=== PATIENT | female | born 1970 | race Caucasian/White ===

== ENCOUNTER 2019-06-13 10:38 | Outpatient (REF) | payer OTHER, SELFPAY ==
[2019-06-13 22:17] LABS: Calculated LDL 108 mg/dL; Cholesterol 206 mg/dL (50-200); HDL Cholesterol 49 mg/dL (40-60); TSH (W/Ref FT4) 1.92 uIU/mL (0.36-3.74); Triglyceride 245 mg/dL (30-150)
[2019-06-13 22:55] LABS: HCT 44.6 % (36.0-46.0); HGB 15.3 g/dL (12.0-15.5)
[2019-06-15 10:15] LABS: FSH 15.8 mIU/ml; LH 7.9 mIU/ml
== END 2019-06-13 10:58 ==
LOC: NCHCN 10:38
PROVIDERS: PCP Family Medicine; Visit Provider Family Medicine
DX: Z00.00 Encounter for general adult medical examination without abnormal findings (principal); R53.83 Other fatigue; N95.1 Menopausal and female climacteric states; F17.210 Nicotine dependence, cigarettes, uncomplicated; F32.9 Major depressive disorder, single episode, unspecified
CPT/HCPCS: 80061; 83001; 83002; 84443; 85014; 85018

== ENCOUNTER 2019-08-16 02:03 | Outpatient (CLI) | payer OTHER, SELFPAY ==
--- NOTE | 2019-08-16 16:06 | DI.MAMMO_ITS ---
EXAM: MAMMO SCREENING CLINICAL HISTORY: SCREENING, [facility] Z00.00 TECHNIQUE: Mammograms were interpreted according to the usual protocol including computer analysis w Petrab[employer] system, tomosynthesis and C-view imaging. FINDINGS: The breasts are heterogeneously dense. No dominant mass or clumped microcalcification identified in either breast. Current examination is compared with previous examinations including April 2017 and ere has been no gross interval change in appearance in comparison with the previous studies. IMPRESSION: No specific evidence of malignancy at this time. Routine screening examinations are suggested at year ly intervals in this age group according to the ACS ACR guidelines. Category 1. Breast category, C. BI-RADS Cat 1 - Negative. Breast Density - Category C - Heterogeneously dense. Patient will receive a letter about results.
== END 2019-08-16 02:23 ==
PROVIDERS: PCP Family Medicine; Visit Provider Family Medicine
DX: Z00.00 Encounter for general adult medical examination without abnormal findings (principal); Z12.31 Encounter for screening mammogram for malignant neoplasm of breast
CPT/HCPCS: 77063; 77067

== ENCOUNTER 2020-06-20 19:44 | Outpatient (REF) | payer OTHER, SELFPAY ==
[2020-06-20 20:29] LABS: TSH 2.11 uIU/mL (0.36-3.74); Triglyceride 294 mg/dL (<150)
[2020-06-20 20:55] LABS: FREE T4 1.02 ng/dL (0.76-1.46)
[2020-06-24 15:10] LABS: FSH 6.3 mIU/mL (See Note); LH 2.3 mIU/mL (See Note)
== END 2020-06-20 20:04 ==
LOC: NCHCN 19:44
PROVIDERS: PCP Family Medicine; Visit Provider Family Medicine
DX: Z00.00 Encounter for general adult medical examination without abnormal findings (principal); R53.83 Other fatigue; F32.9 Major depressive disorder, single episode, unspecified
CPT/HCPCS: 83001; 83002; 84439; 84443; 84478

== ENCOUNTER 2021-06-24 16:46 | Outpatient (REF) | payer OTHER, SELFPAY ==
--- NOTE | 2021-06-24 14:00 | PAPFT_PTH ---
PATIENT: Yaritza Orourke LOC: [facility]#:[id number] AGE/SX: 50/F ROOM: RE06/24/[address]: Makenzie Pete V : 1970 BED: DIS: 06/24/2021 SPEC #: [id number] RECD: 06/25/21 12:54 STATUS: RHONDA REQ #: [id number] WEI: 06/24/21 14:[address]: Makenzie Pete V DEPT: [facility] Cytology RECD BY: Karmen Gleason Tissues: 1 - CX/ENDOCX FOR PAP SMEARS Procedures: PAP THIN PREP/UVM Screening HPV DNA PROBE Comments: [id number]
== END 2021-06-24 16:47 | disposition home or self-care (01) ==
LOC: NCHCN 16:46
PROVIDERS: PCP Family Medicine; Visit Provider Family Medicine
DX: Z01.419 Encounter for gynecological examination (general) (routine) without abnormal findings (principal); Z12.4 Encounter for screening for malignant neoplasm of cervix; Z11.51 Encounter for screening for human papillomavirus (HPV); Z87.42 Personal history of other diseases of the female genital tract
CPT/HCPCS: 88142; 87624

== ENCOUNTER 2021-07-23 02:21 | Outpatient (CLI) | payer OTHER, SELFPAY ==
--- NOTE | 2021-07-23 | DI.CTLCSR_ITS ---
Exam(s) CT CHEST LUNG CANCER SCREEN EXAM: CT CHEST LUNG CANCER SCREEN CLINICAL HISTORY: SCREENING FOR LUNG CA, SMOKER, F17.210,PREVENT[facility]IVE HEALTH TECHNIQUE: CT examination of the chest was performed utilizing low-dose lung cancer screening protoc ol. COMPARISON: No exams were available for comparison FINDINGS: Images obtained through the upper abdomen show unremarkable appearance of visualized portions of the liver and spleen. Note is made of prior cholecystectomy. Visualized portions of pancreas, adrenals , and kidneys appear unremarkable. Note is made of mild enlargement of multiple paratracheal and aortopulmonary lymph nodes, largest in the AP window on transaxial images measuring 24 millimeters in diameter with a 23 millimeter right pr etracheal node period the findings are nonspecific, possibility of underlying neoplastic disease not excluded. Mediastinal vascular structures appear intact by noncontrast criteria. Tracheobronchial tree appears intact. No pleural effusion or pleural-based mass. No significant intrapulmonary nodule is identified. There is a tiny calcified right lower lobe intra pulmonary nodule. There are moderate changes of central lobular and subpleural emphysema. IMPRESSION: Pulmonary emphysematous changes and nonspecific mild mediastinal lymphadenopathy. Clinical correlati on requested and follow-up chest CT is recommended to re-evaluate mediastinal adenopathy in 6 months if tissue sampling is not obtained. Lung RADS Cat 1 - Negative: No nodules and definitely benign nodules Lung RADS Cat S - Other: Clinically Significant or Potentially Clinically Significant Findings (non l juarez cancer) RADIATION DOSE DELIVERED: 79.98mGy.cm Total DLP 1.84mGy CTDIvol 79.98mGy.cm Total DLP 1.84mGy CTDIvol RADIATION OPTIMIZATION: All CT scans at this facility use at least one of these dose optimization te chniques: automated exposure control; mA and/or kV adjustment per patient size (includes targeted exa ms where dose is matched to clinical indication); or iterative reconstruction.
--- NOTE | 2021-07-23 16:10 | DI.MAMMO_ITS ---
Exam(s) MAMMO SCREENING EXAM: MAMMO SCREENING CLINICAL HISTORY: SCREENING, [facility],Z00.00. TECHNIQUE: Bilateral full field digital CC and MLO mammographic images were obtained with 3D tomosyn thesis and utilizing computer aided detection (CAD). COMPARISON: Prior mammograms dating back to 2016, the most recent being August 2019. FINDINGS: Fibroglandular tissue pattern is again noted be dense, this decreasing the sensitivity mammogram for finding hidden underlying lesions. Some asymmetric tissue anteromedially in the left breast is unchanged from prior studies. There are no new obvious spiculated masses nor malignant appearing microcalcification groups. There is no significant architectural distortion nor skin thickening-retraction. IMPRESSION: Dense bilateral fibroglandular tissue. No obvious radiographic evidence of malignancy nor significan t change compared to prior studies listed above. BI-RADS Category 1 - Negative Breast Density - Category C - Heterogeneously dense Breast density Category C or D implies that the patient has dense breast tissue. Dense breast tissue can make it harder to find cancer on a mammogram. Dense breast tissue is also associated with an incr eased risk of breast cancer. This information about the result of the mammogram report was provided to the patient to raise their awareness. Use this report when you speak with the patient about their risks for breast cancer, which includes their family history. At that time, you may recommend additional screening tests (Ultrasoun d or MRI) as these tests may add significant information. A negative radiographic report should not delay biopsy if a dominant or clinically suspicious mass is present. Up to ten percent of cancers are not identified on mammography. A negative report may reinforce clinical impression. Adenosis and dense breasts may obscure an underlying neoplasm. False positive reports average 6 to 10%. Patient will receive a letter notifying them of these results.
== END 2021-07-23 02:41 ==
PROVIDERS: PCP Family Medicine; Visit Provider Family Medicine
DX: Z12.31 Encounter for screening mammogram for malignant neoplasm of breast (principal); Z12.2 Encounter for screening for malignant neoplasm of respiratory organs; F17.210 Nicotine dependence, cigarettes, uncomplicated; R92.8 Other abnormal and inconclusive findings on diagnostic imaging of breast; R59.0 Localized enlarged lymph nodes; R91.8 Other nonspecific abnormal finding of lung field
CPT/HCPCS: 71271; 77063; 77067

== ENCOUNTER 2021-08-08 01:07 | Outpatient (CLI) | payer OTHER, SELFPAY ==
[2021-08-08] MEDS: Inhaler, Assist Device 1 EACH MC (16:12)
[2021-08-08] MEDS: Albuterol HFA 18 GM 200 PUFF INH IH (16:12)
--- NOTE | 2021-08-22 10:51 | W.PFT ---
Date of service: 08/08/21 Time of Service: 14:49 Pulmonary Function Test Result Requesting Provider Rachel Indications: ?Sarcoidosis Interpretation Spirometry: There is no airflow limitation. There is no significant response to bronchodilator therapy. Lung Volumes: Lung volumes are normal. Diffusion Capacity: Diffusion is normal. Airway Pressure: Airways resistance is normal. Impression Normal pulmonary function test Clinical Correlation therefore is recommended.
== END 2021-08-08 01:08 | disposition home or self-care (01) ==
LOC: RT 01:07
PROVIDERS: PCP Family Medicine; Visit Provider Student in an Organized Health Care Education/Training Program
DX: R59.0 Localized enlarged lymph nodes (principal); F17.210 Nicotine dependence, cigarettes, uncomplicated; Z77.098 Contact with and (suspected) exposure to other hazardous, chiefly nonmedicinal, chemicals
CPT/HCPCS: 94060; 94726; 94729

== ENCOUNTER 2022-10-21 03:17 | Outpatient (CLI) | payer OTHER, SELFPAY ==
[2022-10-21 07:48] LABS: ESR 1 mm/hr (0-30); HCT 46.4 % (36.0-46.0); HGB 15.9 g/dL (11.2-15.7); MCH 32.5 pg (27.0-33.0); MCHC 34.3 % (32.0-36.0); MCV 95 fL (80-95); Platelet Count 259 10^3/uL (130-400); RBC 4.89 10^6/uL (3.93-5.22); RDW 12.6 % (11.7-14.6); RDW-SD 44.4 fL; WBC 7.07 10^3/uL (4.4-10.8)
[2022-10-21 09:14] LABS: ALT 79 U/L (14-59); AST 60 U/L (15-37); Alkaline Phosphatase 81 U/L (46-116); Anion Gap 6.2 mmol/L (3-11); BUN 8 mg/dL (7-18); Bilirubin, Total 0.7 mg/dL (0.2-1.0); CO2 29.8 mmol/L (21.0-32.0); CREATININE 0.7 mg/dL (0.55-1.02); Calcium 8.8 mg/dL (8.5-10.1); Chloride 103 mmol/L (98-107); FREE T4 0.94 ng/dL (0.76-1.46); Glucose 105 mg/dL (74-106); Potassium 3.6 mmol/L (3.5-5.1); Sodium 139 mmol/L (136-145); TSH 2.75 uIU/mL (0.36-3.74); Total Protein 7.9 g/dL (6.4-8.2)
[2022-10-21 09:16] LABS: C-Reactive Protein < 0.05 mg/dL (0.0-0.3)
[2022-10-21 09:32] LABS: Calculated LDL 86 mg/dL (<100); Cholesterol 182 mg/dL (<200); HDL Cholesterol 67 mg/dL (40-60); Triglyceride 145 mg/dL (<150)
== END 2022-10-21 03:18 | disposition home or self-care (01) ==
PROVIDERS: PCP Family Medicine; Visit Provider Family Medicine
DX: D86.9 Sarcoidosis, unspecified (principal); R53.83 Other fatigue; Z00.00 Encounter for general adult medical examination without abnormal findings
CPT/HCPCS: 36415; 80053; 80061; 85027; 85652; 84439; 84443; 86140

== ENCOUNTER 2022-11-12 04:31 | Outpatient (CLI) | payer OTHER, SELFPAY ==
[2022-11-12] MEDS: Albuterol HFA 18 GM 200 PUFF INH IH (09:40)
[2022-11-12] MEDS: Inhaler, Assist Device 1 EACH MC (09:40)
--- NOTE | 2022-11-17 13:58 | W.PFT ---
Date of service: 11/12/22 Time of Service: 08:00 Pulmonary Function Test Result Requesting Provider Marimar Indications: Sarcoidosis Interpretation Spirometry: There is no airflow limitation. There is no significant bronchodilator response. Lung Volumes: Normal lung volumes. Diffusion Capacity: Mildly decreased diffusion. Airway Pressure: Normal airways resistance. Impression Mildly decreased diffusion. Note: When compared to 08/08/21, the FEV1 and FVC are stable, the TLC is improved and DLCO is stable. Clinical Correlation therefore is recommended.
== END 2022-11-12 04:32 | disposition home or self-care (01) ==
LOC: RT 04:31
PROVIDERS: PCP Family Medicine; Visit Provider Physician Assistant Surgical
DX: D86.9 Sarcoidosis, unspecified (principal); F17.210 Nicotine dependence, cigarettes, uncomplicated; R94.2 Abnormal results of pulmonary function studies
CPT/HCPCS: 94060; 94726; 94729

== ENCOUNTER 2022-11-12 09:36 | Outpatient (CLI) | payer OTHER, SELFPAY ==
--- NOTE | 2022-11-12 09:45 | RT.EKG_ITS ---
APPROVED REPORT Exam: Resting ECG Reason for Exam: screening for cardiac sarcoid Patient Location: O HR:70 bpm ECG Measurements Heart Rate 70 AXIS IL 133 P 83 QRSd 101 QRS 72 QT 373 T 44 QTc 403 Conclusion Sinus rhythm...normal P axis, V-rate 50- 99 Normal Electrocardiogram
== END 2022-11-12 09:37 | disposition home or self-care (01) ==
LOC: CARDOPNVT 09:36
PROVIDERS: PCP Family Medicine; Visit Provider Physician Assistant Surgical
DX: D86.9 Sarcoidosis, unspecified (principal); Z13.6 Encounter for screening for cardiovascular disorders
CPT/HCPCS: 93005; 93010

== ENCOUNTER 2022-12-30 01:19 | Outpatient (CLI) | payer OTHER, SELFPAY ==
--- NOTE | 2022-12-30 08:00 | DI.MAMMO_ITS ---
Exam(s) MAMMO SCREENING EXAM: MAMMO SCREENING CLINICAL HISTORY: SCREENING, Z12.31 TECHNIQUE: Bilateral full field digital CC and MLO mammographic images were obtained with 3D tomosyn thesis and utilizing computer aided detection (CAD). COMPARISON: Available for comparison. FINDINGS: Masses/Architectural Distortion: None seen. Microcalcifications: No suspicious pleomorphic-type are seen. Skin Thickening/Nipple Retraction: None. IMPRESSION: 1. No significant interval change with no specific features of malignancy noted. 2. Unless there is more urgent need, screening mammography is recommended, as per [place] [employer] guidelines. BI-RADS Category 1 - Negative Breast Density - Category C - Heterogeneously dense Breast density category C or D implies that the patient has dense breast tissue. Dense breast tissue is very common and is not abnormal but dense breast tissue can make it harder to find cancer on a ma mmogram. Also, dense breast tissue may increase their breast cancer risk. This information about the result of the mammogram report was provided to the patient to raise their awareness. Use this report when you speak with the patient about their risks for breast cancer, which includes their family hist ory. At that time, you may recommend for more screening tests (Ultrasound or MRI) as they might be us eful based on their risk. A negative radiographic report should not delay biopsy if a dominant or clinically suspicious mass is present. Up to ten percent of cancers are not identified on mammography. A negative report may reinforce clinical impression. Adenosis and dense breasts may obscure an underlying neoplasm. False positive reports average 6 to 10%. Patient will receive a letter notifying them of these results.
== END 2022-12-30 01:39 ==
LOC: DI 01:19
PROVIDERS: PCP Family Medicine; Visit Provider Family Medicine
DX: Z12.31 Encounter for screening mammogram for malignant neoplasm of breast (principal)
CPT/HCPCS: 77063; 77067

== ENCOUNTER 2023-10-26 05:03 | Outpatient (CLI) | payer OTHER, SELFPAY ==
[2023-10-26] MEDS: Levalbuterol HFA 15 GM INH 4 PUFF IH (09:29)
[2023-10-26] MEDS: Inhaler, Assist Device 1 EACH MC (09:30)
--- NOTE | 2023-10-26 10:32 | W.PFT ---
Date of service: 10/26/23 Time of Service: 07:59 Pulmonary Function Test Result Indications: Sarcoidosis Interpretation Spirometry: There is no airflow limitation. No bronchodilator response. Lung Volumes: Normal lung volumes Diffusion Capacity: Unable due to machine technical errors Airway Pressure: Normal airways resistance Impression Normal pulmonary function testing. DLCO not performed due to machine issues. Clinical Correlation therefore is recommended.
== END 2023-10-26 05:04 | disposition home or self-care (01) ==
LOC: RT 05:03
PROVIDERS: PCP Family Medicine; Visit Provider Physician Assistant Surgical
DX: D86.0 Sarcoidosis of lung (principal)
CPT/HCPCS: 94060; 94726

== ENCOUNTER 2023-11-03 02:49 | Outpatient (CLI) | payer OTHER, SELFPAY ==
[2023-11-03 09:37] LABS: Abs Immature Grans 0.01 10^3/uL (0.0-0.06); Absolute Basophil Count 0.07 10^3/uL (0.0-0.2); Absolute Eosinophil Count 0.62 10^3/uL (0.0-0.7); Absolute Lymphocyte Count 3.06 10^3/uL (1.2-3.4); Absolute Monocyte Count 0.54 10^3/uL (0.1-0.8); Absolute Neutrophil Count 2.93 10^3/uL (1.2-6.7); Eosinophils % 8.6; HCT 44.7 % (36.0-46.0); HGB 15.1 g/dL (11.2-15.7); Immature Grans % 0.1; Lymphocytes % 42.3; MCH 33.1 pg (27.0-33.0); MCHC 33.8 % (32.0-36.0); MCV 98 fL (80-95); MPV 9.3 fL (8.0-11.0); Monocytes % 7.5; Neutrophils % 40.5; Platelet Count 266 10^3/uL (130-400); RBC 4.56 10^6/uL (3.93-5.22); RDW 12.8 % (11.7-14.6); RDW-SD 46.1 fL; WBC 7.23 10^3/uL (4.4-10.8)
[2023-11-03 10:23] LABS: ALT 290 U/L (14-59); AST 158 U/L (15-37); Albumin 3.7 g/dL (3.4-5.0); Alkaline Phosphatase 61 U/L (46-116); Anion Gap 10.7 mmol/L (3-11); BUN 10 mg/dL (7-18); Bilirubin, Total 0.4 mg/dL (0.2-1.0); CO2 27.3 mmol/L (21.0-32.0); Calcium 9.4 mg/dL (8.5-10.1); Chloride 103 mmol/L (98-107); Estimated GFR 67.36 (mL/min/1.73m2); Glucose 100 mg/dL (74-106); Potassium 3.7 mmol/L (3.5-5.1); Sodium 141 mmol/L (136-145); Total Protein 7.7 g/dL (6.4-8.2)
[2023-11-03 10:25] LABS: HCG Quant, Pregnancy 1 mIU/mL (1-3)
== END 2023-11-03 02:50 | disposition home or self-care (01) ==
LOC: LBO 02:49
PROVIDERS: Obstetrics & Gynecology; Absent Provider Student in an Organized Health Care Education/Training Program; PCP Family Medicine; Visit Provider Student in an Organized Health Care Education/Training Program
DX: Z30.430 Encounter for insertion of intrauterine contraceptive device (principal); R79.89 Other specified abnormal findings of blood chemistry; Z12.4 Encounter for screening for malignant neoplasm of cervix
CPT/HCPCS: 36415; 80053; 84702; 85025

== ENCOUNTER 2023-11-03 14:37 | Outpatient (REF) | payer OTHER, SELFPAY ==
--- NOTE | 2023-11-03 14:30 | PAPFT_PTH ---
PATIENT: Yaritza Orourke LOC: [facility]#:[id number] AGE/SX: 53/F ROOM: RE11/03/[address]: Ericka Burgos MD : 1970 BED: DIS: 11/03/2023 SPEC #: [id number] RECD: 11/03/23 17:46 STATUS: RHONDA REQ #: [id number] WEI: 11/03/23 14:[address]: Ericka Burgos [facility] Cytology RECD BY: Karmen Gleason ENTERED: 11/03/23 17:46 SP TYPE: PAPFT OTHR DR: Makenzie Pete V Tissues: 1 - CX/ENDOCX FOR PAP SMEARS Procedures: PAP THIN PREP/UVM Screening HPV DNA PROBE Comments: [id number]
== END 2023-11-03 14:38 | disposition home or self-care (01) ==
LOC: LBN 14:37
PROVIDERS: PCP Family Medicine; Visit Provider Obstetrics & Gynecology
DX: Z12.4 Encounter for screening for malignant neoplasm of cervix (principal)
CPT/HCPCS: 88142; 87624

== ENCOUNTER 2023-11-11 05:02 | Outpatient (CLI) | payer OTHER, SELFPAY ==
--- NOTE | 2023-11-12 09:17 | W.PFT ---
Date of service: 11/11/23 Time of Service: 11:46 Pulmonary Function Test Result Indications: Completed DLCO from prior study Interpretation Diffusion Capacity: Decreased diffusion. Impression Mildly decreased diffusion Clinical Correlation therefore is recommended.
== END 2023-11-11 05:03 | disposition home or self-care (01) ==
LOC: RT 05:03
PROVIDERS: PCP Family Medicine; Visit Provider Physician Assistant Surgical
DX: D86.0 Sarcoidosis of lung (principal); R94.2 Abnormal results of pulmonary function studies
CPT/HCPCS: 94729

== ENCOUNTER 2023-11-11 13:16 | Outpatient (CLI) | payer OTHER, SELFPAY ==
--- NOTE | 2023-11-11 13:45 | RT.EKG_ITS ---
APPROVED REPORT Exam: Resting ECG Reason for Exam: yearly screening Patient Location: O HR:59 bpm ECG Measurements Heart Rate 59 AXIS SC 143 P 60 QRSd 95 QRS 37 QT 390 T 10 QTc 387 Conclusion Sinus rhythm...normal P axis, V-rate 50- 99 I have reviewed and interpreted ECG and agree with software generated interpretation.
== END 2023-11-11 13:17 | disposition home or self-care (01) ==
PROVIDERS: PCP Family Medicine; Visit Provider Student in an Organized Health Care Education/Training Program
DX: D86.9 Sarcoidosis, unspecified (principal)
CPT/HCPCS: 93005; 93010

== ENCOUNTER 2024-01-05 04:41 | Outpatient (CLI) | payer OTHER, SELFPAY ==
[2024-01-05 13:02] LABS: ALT 48 U/L (14-59); AST 28 U/L (15-37)
[2024-01-05 22:36] LABS: Hepatitis C Ab w Rflx HCV PCR Negative (Negative)
== END 2024-01-05 04:42 | disposition home or self-care (01) ==
LOC: LBO 04:41
PROVIDERS: PCP Family Medicine; Visit Provider Family Medicine
DX: Z00.00 Encounter for general adult medical examination without abnormal findings (principal)
CPT/HCPCS: 36415; 86803; 84450; 84460

== ENCOUNTER → 2024-02-09 03:11 | Outpatient (CLI) | payer OTHER, SELFPAY ==
--- NOTE | 2024-02-09 08:00 | DI.MAMMO_ITS ---
Exam(s) MAMMO SCREENING EXAM: MAMMO SCREENING CLINICAL HISTORY: SCREENING, [facility], Z00.00. TECHNIQUE: Bilateral full field digital CC and MLO mammographic images were obtained with 3D tomosyn thesis and utilizing computer aided detection (CAD). COMPARISON: Prior mammograms were reviewed. FINDINGS: The fibroglandular tissue pattern is again noted be dense, this somewhat decreasing the sensitivity o f the mammogram for finding hidden underlying lesions. In the right breast on 3D cc imaging there is a new asymmetric nodular density measuring 5 x 4 mm, lo cated approximately 3 cm in from the nipple on the CC view. Spot compression view and ultrasound rec ommended. In the left breast on the CC view there is an asymmetric density located medial of center approximate ly 3 0.5 cm in from the nipple which also require spot compression view and ultrasound. There are no new malignant-appearing microcalcification groups in either breast. There is no significant architectural distortion nor skin thickening-retraction. IMPRESSION: Dense bilateral fibroglandular tissue. New asymmetric densities bilaterally as described above. Spo t compression bilateral CC views as well as bilateral breast ultrasound recommended. BI-RADS Category 0 - Assessment Incomplete: Need additional imaging evaluation Breast Density - Category C - Heterogeneously dense Breast density Category C or D implies that the patient has dense breast tissue. Dense breast tissue can make it harder to find cancer on a mammogram. Dense breast tissue is also associated with an incr eased risk of breast cancer. This information about the result of the mammogram report was provided to the patient to raise their awareness. Use this report when you speak with the patient about their risks for breast cancer, which includes their family history. At that time, you may recommend additional screening tests (Ultrasoun d or MRI) as these tests may add significant information. A negative radiographic report should not delay biopsy if a dominant or clinically suspicious mass is present. Up to ten percent of cancers are not identified on mammography. A negative report may reinforce clinical impression. Adenosis and dense breasts may obscure an underlying neoplasm. False positive reports average 6 to 10%. Patient will receive a letter notifying them of these results.
== END ==
PROVIDERS: PCP Family Medicine; Visit Provider Family Medicine
DX: Z12.31 Encounter for screening mammogram for malignant neoplasm of breast (principal)
CPT/HCPCS: 77063; 77067

== ENCOUNTER → 2024-02-15 03:57 | Outpatient (CLI) | payer OTHER, SELFPAY ==
--- NOTE | 2024-02-15 | DI.US_ITS ---
Exam(s) US BREAST RT LIMITED MG MAMMO SCREEN CALL BACK BI EXAM: MG MAMMO SCREEN CALL BACK BI and U/S breast RT limited CLINICAL HISTORY: R92.8 Dense bilat fibroglandular tissue,New Asymmetric DENSITIES. TECHNIQUE: Craniocaudal and mediolateral oblique Full Field Digital Mammography views of the bilater al breast with Computer Aided Diagnosis followed by Tomosynthesis and right breast ultrasound. COMPARISON: Comparison is made with prior examinations. FINDINGS: Mammography/Tomosynthesis: Masses/Architectural Distortion: The area of concern in the left breast does not persist on the addit ional views. There is again seen a partially obscured well-circumscribed nodule in the central right breast on the CC view. Microcalcifictions: No suspicious pleomorphic-type are seen. Skin Thickening/Nipple Retraction: None. Limited right breast US: Echotexture: Normal appearance of the glandular tissue. Shadowing: No suspicious foci. Cyst: Simple cysts are seen in the right breast. There is a 0.6 x 0.3 x 0.4 cm simple cyst at the 11 o'clock position 3 cm from the nipple. This likely corresponds to the mammographic abnormality. Th ere is a 0.7 x 0.4 x 0.6 cm cyst at the 10 o'clock position of the right breast 4 cm from the nipple. There is a 6 x 2 x 4 mm simple cyst at the 7 o'clock position of the right breast in the 2 cm from the nipple. Solid lesions: None seen. Ductal dilation: None. IMPRESSION: 1. No evidence of malignancy is noted. 2. Unless there is more urgent need, follow-up screening mammography is recommended, as per [place] [employer] guidelines. 3. The findings were discussed with the patient on the date of the examination. BI-RADS Category 2 - Benign Findings Breast Density - Category C - Heterogeneously dense Breast density Category C or D implies that the patient has dense breast tissue. Dense breast tissue can make it harder to find cancer on a mammogram. Dense breast tissue is also associated with an incr eased risk of breast cancer. This information about the result of the mammogram report was provided to the patient to raise their awareness. Use this report when you speak with the patient about their risks for breast cancer, which includes their family history. At that time, you may recommend additional screening tests (Ultrasoun d or MRI) as these tests may add significant information. A negative radiographic report should not delay biopsy if a dominant or clinically suspicious mass is present. Up to ten percent of cancers are not identified on mammography. A negative report may reinforce clinical impression. Adenosis and dense breasts may obscure an underlying neoplasm. False positive reports average 6 to 10%. Patient will receive a letter notifying them of these results.
== END ==
PROVIDERS: PCP Family Medicine; Visit Provider Family Medicine
DX: Z12.31 Encounter for screening mammogram for malignant neoplasm of breast (principal); R92.8 Other abnormal and inconclusive findings on diagnostic imaging of breast
CPT/HCPCS: 76642; 77063; 77067

== ENCOUNTER 2024-10-30 12:33 | Outpatient (REF) | payer OTHER, SELFPAY ==
[2024-10-30 10:06] LABS: Abs Immature Grans 0.02 10^3/uL (0.0-0.06); Absolute Basophil Count 0.06 10^3/uL (0.0-0.2); Absolute Eosinophil Count 0.45 10^3/uL (0.0-0.7); Absolute Lymphocyte Count 3.42 10^3/uL (1.2-3.4); Absolute Monocyte Count 0.54 10^3/uL (0.1-0.8); Absolute Neutrophil Count 3.36 10^3/uL (1.2-6.7); Basophils % 0.8 %; Eosinophils % 5.7 %; HCT 44.5 % (36.0-46.0); HGB 15.3 g/dL (11.2-15.7); Immature Grans % 0.3 %; Lymphocytes % 43.6 %; MCH 32.3 pg (27.0-33.0); MCHC 34.4 % (32.0-36.0); MCV 94 fL (80-95); MPV 9.1 fL (8.0-11.0); Monocytes % 6.9 %; Neutrophils % 42.7 %; Platelet Count 308 10^3/uL (130-400); RBC 4.74 10^6/uL (3.93-5.22); RDW 12.1 % (11.7-14.6); RDW-SD 42.5 fL; WBC 7.85 10^3/uL (4.4-10.8)
[2024-10-30 10:08] LABS: ALT 45 U/L (14-59); AST 35 U/L (15-37); Albumin 3.9 g/dL (3.4-5.0); Alkaline Phosphatase 81 U/L (46-116); Anion Gap 10.7 mmol/L (3-11); BUN 15 mg/dL (7-18); Bilirubin, Total 0.31 mg/dL (0.2-1.0); CO2 23.3 mmol/L (21.0-32.0); CREATININE 0.6 mg/dL (0.55-1.02); Calcium 9.2 mg/dL (8.5-10.1); Chloride 105 mmol/L (98-107); Glucose 107 mg/dL (74-106); Potassium 4.5 mmol/L (3.5-5.1); Sodium 139 mmol/L (136-145); Total Protein 7.8 g/dL (6.4-8.2)
--- OUTSIDE RECORDS SUMMARY | 2024-10-30 12:35 | XMS_ITS | Clinical Summary ---
Author Organization [facility] Address [address] [place] [id number] Care Team Providers Care Office Electrician Name Role Phone Unknown, Provider MD Primary Care Provider Unava ilable Social History Tobacco Use Types Packs/Day Years Used Date Smoking Tobacco: Never Assessed Comments Unknown Sex and Gender Information Value Date Recorded Sex Assigned at Not on file Legal Sex Female 18:20 EST Gender Identity Not on file Sexual Orientation Not on file Plan of Treatment Health Maintenance Due Date Last Done Comments Hepatitis B Vaccine (1 of - 19+ 3-dose series) 10/11 COVID-19 Vaccine ( season) 2024 Hepatitis C Screen Completed 01/05/2024 Procedures Procedure Name Priority Date/Time Associated Diagnosis Comments HEPATITIS C AB W REFLEX TO HCV RNA BY PCR Routine 01/05/2024 12:15 EDT from Last 3 Months or Most Recently Relevant to Health Maintenance Results * HEPATITIS C AB W REFLEX TO HCV RNA BY PCR (01/05/2024 12:15 EDT) Hep C Antibody Negative Negative 01/05/2024 22:30 EDT [facility] Blood VENOUS BLOOD / Unknown 01/05/2024 12:15 EDT 01/05/2024 20:53 EDT us Provider Outr Resulting Lab CHEMISTRY & BLOOD GA S ORDERABLES Final Result [facility] [address] [place] [address] from Last 3 Months or Most Recently Relevant to Health Maintenance Insurance [employer] Care Teams Office Electrician Relationship Specialty Start Date End Date Unknown, Provider, PCP - General 06/20/09
--- OUTSIDE RECORDS SUMMARY | 2024-10-30 12:35 | XMS_ITS | Encounter Summary ---
Author Organization [facility] Address [address] [place] [address] Care Team Providers Care Aircraft Launch And Recovery Technician Name Role Phone Unknown, Provider Primary Care Provider Unava ilable Encounter Details Date Type Department Care Team (Late st Contact Info) Description 01/05/2024 Lab Requisition [facility] Pathology & Laboratory Medicine - [facility] [address], [place] [id number] Outr Resulting Lab, Provider Social History Tobacco Use Types Packs/Day Years Used Date Smoking Tobacco: Never Assessed Comments Unknown Sex and Gender Information Value Date Recorded Sex Assigned at Not on file Legal Sex Female 18:20 EST Gender Identity Not on file Sexual Orientation Not on file documented as of this encounter Plan of Treatment Not on file documented as of this encounter Procedures Procedure Name Priority Date/Time Associated Diagnosis Comments HEPATITIS C AB W REFLEX TO HCV RNA BY PCR Routine 01/05/2024 12:15 EDT documented in this encounter Results * HEPATITIS C AB W REFLEX TO HCV RNA BY PCR (01/05/2024 12:15 EDT) Hep C Antibody Negative Negative 01/05/2024 22:30 EDT [facility] Blood VENOUS BLOOD / Unknown 01/05/2024 12:15 EDT 01/05/2024 20:53 EDT us Provider Outr Resulting Lab CHEMISTRY & BLOOD GA S ORDERABLES Final Result [facility] [address], [place] [id number] documented in this encounter Visit Diagnoses Not on filedocumented in this encounter Care Teams Aircraft Launch And Recovery Technician Relationship Specialty Start Date End Date Unknown, Provider, PCP - General 06/20/09 documented as of this encounter
--- OUTSIDE RECORDS SUMMARY | 2024-10-30 12:35 | XMS_ITS | Referral Summary ---
Author Organization [facility] Address [address] [place] [address] Care Team Providers Care Kindergarten Classroom Teacher Name Role Phone Unknown, Provider MD Primary Care Provider Unava ilable Social History Tobacco Use Types Packs/Day Years Used Date Smoking Tobacco: Never Assessed Comments Unknown Sex and Gender Information Value Date Recorded Sex Assigned at Not on file Legal Sex Female 18:20 EST Gender Identity Not on file Sexual Orientation Not on file Plan of Treatment Not on file Procedures Procedure Name Priority Date/Time Associated Diagnosis Comments HEPATITIS C AB W REFLEX TO HCV RNA BY PCR Routine 01/05/2024 12:15 EDT from Last 3 Months or Most Recently Relevant to Health Maintenance Results * HEPATITIS C AB W REFLEX TO HCV RNA BY PCR (01/05/2024 12:15 EDT) Hep C Antibody Negative Negative 01/05/2024 22:30 EDT [facility] Blood VENOUS BLOOD / Unknown 01/05/2024 12:15 EDT 01/05/2024 20:53 EDT us Provider Outr Resulting Lab CHEMISTRY & BLOOD GA S ORDERABLES Final Result [facility] [address] [place], [place] [id number] from Last 3 Months or Most Recently Relevant to Health Maintenance [facility] Care Teams Kindergarten Classroom Teacher Relationship Specialty Start Date End Date Unknown, Provider, PCP - General 06/20/09
--- OUTSIDE RECORDS SUMMARY | 2024-10-30 12:36 | XMS_ITS | Encounter Summary ---
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 Name Role Phone Makenzie Pete MD Primary Care Provider [phone] Reason for Visit * Auth/Cert Specialty Diagnoses / Procedures Referred By Contmanfred t Referred To Contact Diagnoses Mediastinal adenopathy Mediastinal adenopathy/ Bronchoscopy with EBUS/ GA/ Mitchell Procedures PRO [facility] EBUS GUIDED SAMPL 1/2 NODE STATION/STRUX BRONCH, W ENDOBRONCHIAL ULTRASOUND (EBUS) GUIDED SAMPLING, 1/2 NODES (WRVU 4.71) Referral ID Status Reason Start Date Expiration Date Visits Re quested Visits Authorized [id number] 1 1 Encounter Details Date Type Department Care Team (Late st Contact Info) Description 08/28/2021 8:00 AM EST - 08/28/2021 9:01 AM EST Surgery [place] [address] Sohail Medrano MD [facility] [place] [address] BRONCHOSCOPY, RIGID OR FLEXIBLE, WITH BRONCHIAL ALVEOLAR LAVAGE (WRVU 2.63) Social History Tobacco Use Types Packs/Day Years Used Date Smoking Tobacco: Former Smokeless Tobacco: Never Alcohol Use Standard Drinks/Week Comments Yes 7 (1 standard drink = 0.6 oz pur e alcohol) Sex and Gender Information Value Date Recorded Sex Assigned at Not on file Gender Identity Not on file Sexual Orientation Not on file documented as of this encounter Last Filed Vital Signs Vital Sign Reading Time Taken Comments Blood Pressure 139/103 08/28/2021 7:25 AM EST Pulse 77 08/28/2021 7:25 AM EST Temperature 36.4 ??C (97.6 ??F) 08/28/2021 7:25 AM ES T Respiratory Rate - - Oxygen Saturation 96% 08/28/2021 7:25 AM EST Inhaled Oxygen Concentration - - Weight 77.1 kg (170 lb) 08/28/2021 7:25 AM EST Height 170.2 cm (5' 7) 08/28/2021 7:25 AM EST Body Mass Index 26.63 08/28/2021 7:25 AM EST documented in this encounter Discharge Instructions * Discharge Instructions* Moira Lucio, RN - 08/28/2021 10:11 AM EST Bronchoscopy: What to Expect at Home Your Recovery Bronchoscopy lets your doctor look at your airway through a tube called a bronchoscope. Afterward, you may feel tired for 1 or 2 days. Your mouth may feel very dry for several hours after the procedure. You may also have a sore throat and a hoarse voice for a few days. Sucking on throat lozenges orgargling with warm salt water may help soothe your sore throat. If a sample of tissue (biopsy) was taken, you may spit up a small amount of blood or have bloody saliva. This is normal. This care sheet gives you a general idea about how long it will take for you to recover. But each person recovers at a different pace. Follow the steps below to get better as quickly as possible. How can you care for yourself at home? Activity ?? Rest when you feel tired. Getting enough sleep will help you recover. ?? Avoid strenuous activities, such as bicycle riding, jogging, weight lifting, or aerobic exercise, until your doctor says it is okay. Diet ?? You can eat your normal diet. If your stomach is upset, try bland, low-fat foods like plain rice, broiled chicken, toast, and yogurt. ?? If it is painful to swallow, start out with cold drinks, flavored ice pops, and ice cream. Next,try soft foods like pudding, yogurt, canned or cooked fruit, scrambled eggs, and mashed potatoes. Avoid eating hard or scratchy foods like chips or raw vegetables. Avoid orange or tomato juice and other acidic foods that can sting the throat. ?? Drink plenty of fluids to avoid becoming dehydrated (unless your doctor tells you not to). Medicines ?? Take pain medicines exactly as directed. ? If the doctor gave you a prescription medicine for pain, take it as prescribed. ? If you are not taking a prescription pain medicine, ask your doctor if you can take an [id number] medicine. ?? If you think your pain medicine is making you sick to your stomach: ? Take your medicine after meals (unless your doctor has told you not to). ? Ask your doctor for a different pain medicine. ?? If your doctor prescribed antibiotics, take them as directed. Do not stop taking them just because you feel better. You need to take the full course of antibiotics. Follow-up care is a chaidez part of your treatment and safety. Be sure to make and go to all appointments, and call your doctor if you are having problems. It's also a good idea to know your test resultsand keep a list of the medicines you take. When should you call for help? Call 911 anytime you think you may need emergency care. For example, call if: ?? You passed out (lost consciousness). ?? You have sudden chest pain and shortness of breath. ?? You cough up large amounts of bright red blood. ?? You have severe pain in your chest. ?? You have severe trouble breathing. Call your doctor now or seek immediate medical care if: ?? You cough up more than a few tablespoons of blood. ?? You have pain that does not get better after you take pain medicine. ?? You have a fever over 100??F. ?? You still sound hoarse after a few days. ?? You have bubbles under the skin around the collarbone. These may crackle and pop when you press on them. Watch closely for changes in your health, and be sure to contact your doctor if you have any problems. Where can you learn more? Visit our health information library at [email or web address]. You can also view health information on [employer], your personal patient account. Log in or sign uptoday. Enter S288 in the search box to learn more about Bronchoscopy: What to Expect at Home. Current as of: March 19, 2019 Content Version: 12.2 ?? [id number] [employer]. Care instructions adapted under license by [facility]. If you have questions about a medical condition or this instruction, always ask your healthcare professional. [employer] disclaims any warranty or liability for your use of this information. documented in this encounter Medications at Time of Discharge Medication Sig Dispensed Refills Start Date End Date citalopram (CeleXA) 20 mg Tablet 06/26/2021 cholecalciferol, Vitamin D3, (cholecalciferol, Vitamin D3,) 50 mcg (2,000 unit) Capsule Take 5,000 Units by mouth. b complex vitamins Capsule Take 1 capsule by mouth daily. multivitamin (THERAGRAN) tablet 07/22/2006 documented as of this encounter H&P Notes * Sohail Medrano MD - 08/28/2021 7:40 AM EST Patient Name: Yaritza Orourke Patient Age: 50 y.o. Birthdate: 1970 Admit date: 08/28/2021 Attending Physician: Sohail Medrano MD Interventional Pulmonology Pre-Procedure History & Physical SECTION OF PULMONARY/CRITICAL CARE MEDICIE Procedure: Bronchoscopy with bronchoalveolar lavage Bronchoscopy, endobronchial ultrasound (EBUS), transbronchial lung biopsies Reason for procedure: Lung nodule and Lymphadenopathy See last note from Dr. Dr. Ramos in media tab. PHYSICAL EXAM: Patient Vitals for the past 8 hrs: BP Temp Pulse SpO2 Height Weight 08/28/21 0725 (!) 139/103 36.4 ??C (97.6 ??F) 77 96 % 170.2 cm (5' 7) 77.1 kg (170 lb) Mental Status: Alert and oriented x3 Airway examination: Feasible Pulmonary: Clear to ausculation bilaterally CV: RRR, no murmurs or gallops ASA Grade: ASA II (Patient has mild systemic disease) Assessment & Plan: ?? Risks, benefits and alternatives of the procedure were explained and all questions were answered ?? Consent to be signed ?? Proceed with procedure as stated Sohail Medrano MD, 08/28/2021, 7:40 AM Interventional Pulmonology Section of Pulmonary & Critical Care Pager: [phone] documented in this encounter Miscellaneous Notes * Op Note - Sohail Medrano MD - 08/28/2021 8:15 AM EST Images from the original note were not included. Interventional Pulmonology Bronchoscopy with EBUS-TBNA Operative Note SECTION OF PULMONARY & CRITICAL CARE MEDICINE PROCEDURE: Bronchoscopy with EBUS-Guided Transbronchial Needle Aspiration, TBNA additional stations, radial EBUS, EBBx, BAL Date / Time: 08/28/2021 / 9:03 AM Location: Endoscopy Procedure Attending: Dr. Medrano was present for the entire procedure. Others Present: nursing / anesthesia Indication(s) / Pre-Procedure Diagnosis: Mediastinal & hilar adenopathy, lung nodule PRE-PROCEDURE EVALUATION: Pre-procedure checks were completed. This includes relevant documentation (H&P, nursing assessment, pre-anesthesia/sedation assessment); labeled diagnostic and radiology studies matched to patient & properly displayed; availability of blood products, implants, devices and special equipment (matched to the patient); as well as site marking with patient involvement. Consent: Indications, risks, benefits and alternatives were explained during the informed consent process as stated on the informed consent form. Consent obtained from: patient Procedure Status: elective SEDATION, ANALGESIA, AND MONITORING: Medications: Refer to record of source. ASA Class: 2 Monitoring: Cardiac telemetry, pulse oximtery, blood pressure monitoring, capnography Time Out: A time out was performed prior to starting the procedure. Time out includes correct patient identity, agreement on procedure to be performed as stated on the informed consent, correct site and side (laterality). PROCEDURE IN DETAIL: The H190 bronchoscope was inserted into the LMA. The vocal cords were within normal limits. The trachea, bilateral mainstem bronchi, and the bilateral segmental bronchi were all visualized and no obvious endobronchial lesions were noted, though the airways were slightly hyperemic. Radial EBUS was used to try and identify the RML nodule, but it could not be located. A BAL was performed in the RML.EBBx were obtained from the main manasa. The bronchoscope was removed and the EBUS scope inserted. EBUS confirmed the presence of an enlarged node at stations 11L, 4L, 7, 4R and 11R. Multiple passes with EBUS TBNA were performed at stations 4L, 7, 4R and 11R. Following this, hemostasis was confirmed, the procedure was terminated and the bronchoscope was withdrawn. Main manasa w/hyperemia Estimated Blood Loss: Minimal COMPLICATIONS: No immediate complications noted POST-PROCEDURE DIAGNOSIS: Mediastinal/Hilar Adenopathy, RML nodule SPECIMENS REMOVED: Yes RECOMMENDATIONS: Await pathology results Sohail Medrano MD Chief, Section of Pulmonary and Critical Care Medicine [address] Room [address] [place] [address] Phone Pul Generic: [phone] [email or web address] Pager #[phone] documented in this encounter Plan of Treatment Not on file documented as of this encounter Procedures Procedure Name Priority Date/Time Associated Diagnosis Comments NON-JEWEL GAUGER FINAL REPORT Routine 08/28/2021 9:04 AM EST NON-JEWEL GAUGER FINAL REPORT Routine 08/28/2021 9:04 AM EST NON-JEWEL GAUGER FINAL REPORT Routine 08/28/2021 9:04 AM EST NON-JEWEL GAUGER FINAL REPORT Routine 08/28/2021 9:04 AM EST SURGICAL PATHOLOGY REPORT Routine 2020 9:04 AM EST SPECIMEN TO PATHOLOGY Routine 08/28/2021 9:04 AM EST CYTOPATHOLOGY NON-GYNECOLOGICAL Routine 08/28/2021 9:04 AM EST CYTOPATHOLOGY NON-GYNECOLOGICAL Routine 08/28/2021 9:04 AM EST CYTOPATHOLOGY NON-GYNECOLOGICAL Routine 08/28/2021 9:04 AM EST CYTOPATHOLOGY NON-GYNECOLOGICAL Routine 08/28/2021 9:04 AM EST CYTOPATHOLOGY NON-GYNECOLOGICAL Routine 08/28/2021 9:04 AM EST IMMUNOPHENOTYPING FLOW CYTOMETRY (BLOOD) Routine 08/28/2021 8:50 AM EST NON-JEWEL GAUGER FINAL REPORT Routine 08/28/2021 8:50 AM EST FLOW CYTOMETRY REPORT Routine 08/28/2021 8:50 AM EST HC AFB SMEAR Routine 08/28/2021 8:50 AM EST HC GRAM STAIN FOR BACTERIA Routine 08/28/2021 8:50 AM EST HC FUNGUS CULTURE, MISC SOURCE Routine 08/28/2021 8:50 AM EST IMMUNOPHENOTYPING FLOW CYTOMETRY (BLOOD) Routine 08/28/2021 8:45 AM EST FLOW CYTOMETRY REPORT Routine 08/28/2021 8:45 AM EST Bronchoscopy, Biopsy ([id number]) 08/28/2021 8:00 AM EST Mediastinal adenopathy [facility] Ebus Dx/Tx Intervention Perph Les ([id number]) 08/28/2021 8:00 AM EST Mediastinal adenopathy [facility] Ebus Guided Sampl 3/> Node Station/Strux ([id number]) 08/28/2021 8:00 AM EST Mediastinal adenopathy Bronchoscopy, Diagnostic W Lavage ([id number]) 08/28/2021 8:00 AM EST Mediastinal adenopathy documented in this encounter Results * Non-Bush Regenerator Final Report (08/28/2021 9:04 AM EST) Diagnosis Discussion [id number] ? Location: 4T; EA12; A The signing pathologist has (i) examined the relevant preparation(s) for the specimen(s) and (ii) rendered or confirmed the diagnosis(es). . ? Non-Bush Regenerator Final DIAGNOSIS See Discussion Electronically signed by: ?Gokul Mondragon MD Verified: ??09/02/2021 11:10 ??Pathologist Performed at: ??-[facility], [place], [place] DISCUSSION Lymph node, station 4L (EBUS-guided FNA): Fragments of lymphoid tissue present, compatible with lymph node sampling. Respiratory epithelial cells ?? (likely procedural contaminant), are seen. No metastatic carcinoma seen. CLINICAL INFORMATION Specimen Source : Lymph node, station 4L (EBUS-guided FNA) Pertinent Clinical Data and Significant Therapy: Sarcoid vs lymphoma Clinical Impression : Sarcoid vs lymphoma Pertinent Radiologic Findings ??: (not provided) Gross Description: Received in Formalin approximately 45 mL total volume of cloudy, red fluid, with clots. Total Preparation: Cell Block 1. 09/02/2021 11:10 AM EST [facility] LYMPH NODE SPECIMEN / Unknown 08/28/2021 9:04 AM EST 08/28/2021 9:04 AM EST Sohail Medrano MD PATHOLOGY/CYTOL OGY ORDERABLES [facility] [place] [address] * Non-Bush Regenerator Final Report (08/28/2021 9:04 AM EST) Diagnosis Discussion [id number] ? Location: 4T; EA12; A The signing pathologist has (i) examined the relevant preparation(s) for the specimen(s) and (ii) rendered or confirmed the diagnosis(es). . ? Non-Bush Regenerator Final DIAGNOSIS See Discussion Electronically signed by: ?Gokul Mondragon MD Verified: ??09/02/2021 11:06 ??Pathologist Performed at: ??-[facility], [place], [place] DISCUSSION Lymph node, station 11R (EBUS-guided FNA): Fragments of lymphoid tissue present, compatible with lymph node sampling. No metastatic carcinoma seen. CLINICAL INFORMATION Specimen Source : Lymph node, station 11R (EBUS-guided FNA) Pertinent Clinical Data and Significant Therapy: Sarcoid vs lymphoma Clinical Impression : Sarcoid vs lymphoma Pertinent Radiologic Findings ??: (not provided) Gross Description: Received in Formalin approximately 38 mL total volume of cloudy, red fluid, with clots. Total Preparation: Cell Block 1. 09/02/2021 11:06 AM EST [facility] LYMPH NODE SPECIMEN / Unknown 08/28/2021 9:04 AM EST 08/28/2021 9:04 AM EST Sohail Medrano MD PATHOLOGY/CYTOL OGY ORDERABLES [facility] [place] [address] * Non-Bush Regenerator Final Report (08/28/2021 9:04 AM EST) Diagnosis Discussion [id number] ? Location: 4T; EA12; A The signing pathologist has (i) examined the relevant preparation(s) for the specimen(s) and (ii) rendered or confirmed the diagnosis(es). . ? Non-Bush Regenerator Final DIAGNOSIS See Discussion Electronically signed by: ?Gokul Mondragon MD Verified: ??09/02/2021 11:03 ??Pathologist Performed at: ??-[facility], [place], [place] DISCUSSION Lymph node, station 7 (EBUS-guided FNA): Fragments of lymphoid tissue present, compatible with lymph node sampling. No metastatic carcinoma seen. CLINICAL INFORMATION Specimen Source : Lymph node, station 7 (EBUS-guided FNA) Pertinent Clinical Data and Significant Therapy: Sarcoid vs lymphoma Clinical Impression : Sarcoid vs lymphoma Pertinent Radiologic Findings ??: (not provided) Gross Description: Received ??in Formalin approximately 48 mL total volume of ?? cloudy, red fluid, with clots. Total Preparation: Cell Block 1. 09/02/2021 11:03 AM EST [facility] LYMPH NODE SPECIMEN / Unknown 08/28/2021 9:04 AM EST 08/28/2021 9:04 AM EST Sohail Medrano MD PATHOLOGY/CYTOL OGY ORDERABLES [facility] [place] [address] * Non-Bush Regenerator Final Report (08/28/2021 9:04 AM EST) Diagnosis Discussion [id number] ? Location: 4T; EA12; A The signing pathologist has (i) examined the relevant preparation(s) for the specimen(s) and (ii) rendered or confirmed the diagnosis(es). . ? Non-Bush Regenerator Final DIAGNOSIS See Discussion Electronically signed by: ?Gokul Mondragon MD Verified: ??09/02/2021 10:59 ??Pathologist Performed at: ??-[facility], [place], [place] DISCUSSION Lymph node, station 4R (EBUS-guided FNA): Fragments of lymphoid tissue present, compatible with lymph node sampling. No metastatic carcinoma seen. --- Immunohistochemistry Studies --- Interpretation: LCA ??highlights lymphocytes. Immunostain for synaptophysin is negative. ? Immunohistochemical assays were performed (on paraffin-embedded cell block sections fixed in 10% neutral buffered formalin for 6-72 hours) using the polymer technique with appropriate controls. The sections are studied for LCA and synaptophysin. These immunohistochemical studies provide ancillary information and are used only in conjunction with standard diagnostic procedures. CLINICAL INFORMATION Specimen Source : Lymph node, station 4R (EBUS-guided FNA) Pertinent Clinical Data and Significant Therapy: Sarcoid vs lymphoma Clinical Impression : Sarcoid vs lymphoma Pertinent Radiologic Findings ??: (not provided) Gross Description: Received in Formalin approximately 42 mL total volume of cloudy, red fluid, with clots. Total Preparation: Cell Block 1. 09/02/2021 10:59 AM EST [facility] LYMPH NODE SPECIMEN / Unknown 08/28/2021 9:04 AM EST 08/28/2021 9:04 AM EST Sohail Medrano MD PATHOLOGY/CYTOL OGY ORDERABLES [facility] [place] [address] * Surgical Pathology Report (08/28/2021 9:04 AM EST) Final Diagnosis [id number] ? Location: 4T; EA12; A The signing pathologist has (i) examined the relevant preparation(s) for the specimen(s) and (ii) rendered or confirmed the diagnosis(es). . ?Surgical Pathology DIAGNOSIS Endobronchial biopsy: - Bronchial tissue with nonspecific ?? chronic inflammation. Electronically signed by: ?MD Una, Dyllan Moralez Verified: ??08/29/2021 16:28 ??Pathologist Performed at: ??-[facility], [place], [place] SPECIMEN(S) SUBMITTED A - endobronchial biopsy, biopsy (1) CLINICAL INFORMATION ? Sarcoid SPECIMEN PROCESSING A - Labeled/Fixative: Endobronchial biopsies, formalin. Quantity/Size: Fragments, 0.1-0.2 cm. Tissue Description: Soft, focally hemorrhagic pink-white tissues. Sections/Processi ng: Submitted en toto ??in 1 cassette labeled A1. ??pps 08/29/2021 4:28 PM EST [facility] LUNG STRUCTURE / Unknown 08/28/2021 9:04 AM EST 08/28/2021 9:04 AM EST Sohail Medrano MD PATHOLOGY/CYTOL OGY ORDERABLES Performing Organization Address [facility]/ZIP Co de Phone Number [facility] [place] [address] * Specimen to Pathology (08/28/2021 9:04 AM EST) AP Specimen 08/28/2021 9:04 AM EST 08/28/2021 9:04 AM EST Narrative [facility] - 08/28/2021 9:04 AM EST Specimen requisition ordered. ??Separate Pathology report to follow Sohail Medrano MD PATHOLOGY/CYTOL OGY ORDERABLES Performing Organization Address City/[facility]/ZIP Co de Phone Number [facility] [place] [address] * Cytopathology Non-Gynecological (08/28/2021 9:04 AM EST) AP Specimen 08/28/2021 9:04 AM EST 08/28/2021 9:04 AM EST Narrative [facility] - 08/28/2021 9:04 AM EST Specimen requisition ordered. ??Separate Pathology report to follow Sohail Medrano MD PATHOLOGY/CYTOL OGY ORDERABLES Performing Organization Address [facility]/ZIP Co de Phone Number [facility] [place] [address] * Cytopathology Non-Gynecological (08/28/2021 9:04 AM EST) AP Specimen 08/28/2021 9:04 AM EST 08/28/2021 9:04 AM EST Narrative [facility] - 08/28/2021 9:04 AM EST Specimen requisition ordered. ??Separate Pathology report to follow Sohail Medrano MD PATHOLOGY/[place] [address] * Cytopathology Non-Gynecological (08/28/2021 9:04 AM EST) AP Specimen 08/28/2021 9:04 AM EST 08/28/2021 9:04 AM EST Narrative [facility] - 08/28/2021 9:04 AM EST Specimen requisition ordered. ??Separate Pathology report to follow Sohail Medrano MD PATHOLOGY/CYTOL OGY ORDERABLES [facility] [place] [address] * Cytopathology Non-Gynecological (08/28/2021 9:04 AM EST) AP Specimen 08/28/2021 9:04 AM EST 08/28/2021 9:04 AM EST Narrative [facility] - 08/28/2021 9:04 AM EST Specimen requisition ordered. ??Separate Pathology report to follow Sohail Medrano MD PATHOLOGY/[place] [address] * Cytopathology Non-Gynecological (08/28/2021 9:04 AM EST) AP Specimen 08/28/2021 9:04 AM EST 08/28/2021 9:04 AM EST Narrative [facility] - 08/28/2021 9:04 AM EST Specimen requisition ordered. ??Separate Pathology report to follow Sohail Medrano MD PATHOLOGY/CYTOL TAYO ORDERABLES [facility] [place] [address] * Non-Bush Regenerator Final Report (08/28/2021 8:50 AM EST) Diagnosis Discussion [id number] ? Location: 4T; EA12; A The signing pathologist has (i) examined the relevant preparation(s) for the specimen(s) and (ii) rendered or confirmed the diagnosis(es). . ? Non-Bush Regenerator Final DIAGNOSIS See Discussion Electronically signed by: ?Gokul Mondragon MD Verified: ??08/30/2021 11:15 ??Pathologist Performed at: ??-[facility], [place], [place] DISCUSSION Bronchial alveolar lavage: Respiratory epithelia cells, abundant alveolar macrophages, a few neutrophils and mucus. No overtly cytologically malignant cells seen. Clinical and radiologic correlation is required to determine whether this sample is fully abrasives sales representative of a clinically suspected lesion. (Cell block was examined.) CLINICAL INFORMATION Specimen Source : Bronchial alveolar lavage Pertinent Clinical Data and Significant Therapy: Sarcoid vs lymphoma Clinical Impression : Sarcoid vs lymphoma Pertinent Radiologic Findings ??: (not provided) Gross Description: Received ??fresh, approximately 30 mL total volume of ?? cloudy, pink fluid, with light flecks. Total Preparation: Liquid-Based Prep 1; Cell Block 1. 08/30/2021 11:15 AM EST [facility] BRONCHIAL STRUCTURE / Unknown 08/28/2021 8:50 AM EST 08/28/2021 8:50 AM EST Sohail Medrano MD PATHOLOGY/CYTOL OGY ORDERABLES [facility] [place] [address] * Flow Cytometry Report (08/28/2021 8:50 AM EST) Flow Cytometry Report [id number] ? Location: 4T; EA12; A The signing pathologist has (i) examined the relevant preparation(s) for the specimen(s) and (ii) rendered or confirmed the diagnosis(es). . ?Flow Cytometry DIAGNOSIS Flow cytometric diagnosis: ?? The CD4:CD8 ratio is 1.36 Electronically signed by: ?Marysol JJ, Flynn Verified: ??08/29/2021 17:11 ??Hematopathologist Performed at: ??-[facility], [place], [place] DISCUSSION Cell viability in the [id number] low-SSC histogram region was 76% as assessed by 7- AAD exclusion. Lymphocytes enriched gate approximately 2% of total events, consisting of T-cells (78%), B-cells (4%), and NK-cells (2%). The CD4:CD8 ratio is 1.36 (normal 0.9-2.5 for adults). No evidence of abnormal CD4:CD8 in limited lymphocyte population. Reference: Augustin et al. [place] ?? Journal of ??Respiratory and Critical ??Care Medicine. An ??Official [place] [employer] Clinical Practice Guideline: The Clinical Utility of ??Bronchoalveolar ??Lavage Cellular ??Analysis in Interstitial ??Lung Disease. Volume 185. 2012. Flow analysis is an ancillary study. A definite diagnosis requires correlation with the morphologic features of this process and if necessary, correlation with other ancillary studies like immunohistochemistr y, enzyme cytochemistry and/or cyto/ molecular genetics. This test was developed and its performance characteristics determined by the Clinical Flow Cytometry Laboratory at [facility]. It has not been cleared or approved by the U.S. Food and Drug Administration. ??The FDA has determined that such clearance or approval is not necessary. ??This test is used for clinical purposes. ??It should not be regarded as investigational or for research. This laboratory is certified under the Clinical Laboratory Improvement Act of 1988 (CLIA) as qualified to perform high complexity clinical laboratory testing. SPECIMEN PROCESSING [id number] Cells for immunophenotypic analysis were derived from BAL. CD45 vs side scatter gating was utilized to identify a lymphoid analysis region that comprises approximately 1% of all cells. The following markers were assessed: CD3, CD4, CD8, CD19, CD45, and CD56. CLINICAL INFORMATION CD4: Cd8 ratio [facility] 08/28/2021 8:50 AM EST Sohail Medrano MD PATHOLOGY/CYTOL OGY ORDERABLES Performing Organization Address City/[facility]/ZIP Co de Phone Number [facility] [place] [address] * Immunophenotyping Flow Cytometry (08/28/2021 8:50 AM EST) Immunophenotyping Flow See Comment [facility] Comment: When completed by the Pathologist, the Flow Cytometry Report ([id number]) will display under the Pathology Results section within [facility]. Other 08/28/2021 8:50 AM EST 08/28/2021 9:56 AM EST Narrative Resulting Agency Comment Spec In Lab Sohail Medrano MD HEMATOLOGY ORDOriana WING Performing Organization Address [facility]/ZIP Co de Phone Number [facility] [place] [address] * AFB culture Bronchial Alveolar Lavage (08/28/2021 8:50 AM EST) Acid Fast Bacilli Culture No Acid Fast Bacilli isolated If active tuberculosis is suspected, the patient should be on [employer]. Call Infection Prevention for assistance if needed. [facility] Acid Fast Stain No Acid Fast Bacilli seen [facility] Bronchial Alveolar Lavage 08/28/2021 8:50 AM EST 08/28/2021 10:02 AM EST Comment:RML Narrative Resulting Agency Comment Spec In Lab Sohail Medrano MD MICROBIOLOGY - GENERAL ORDERABLES Performing Organization Address [facility] Co de Phone Number [facility] [place] [address] * Fungus culture Bronchial Alveolar Lavage (08/28/2021 8:50 AM EST) Fungus Culture No Fungus isolated [facility] Bronchial Alveolar Lavage 08/28/2021 8:50 AM EST 08/28/2021 10:02 AM EST Comment:RML Narrative Resulting Agency Comment Spec In Lab Sohail Medrano MD MICROBIOLOGY - GENERAL ORDERABLES Performing Organization Address [facility] de Phone Number [facility] [place] [address] * Lower Respiratory Culture Bronchial Alveolar Lavage (08/28/2021 8:50 AM EST) Lower Respiratory Culture No growth [facility] Gram Stain Few Neutrophils seen No squamous epithelial cells No microorganisms seen. [facility] Bronchial Alveolar Lavage 08/28/2021 8:50 AM EST 08/28/2021 10:02 AM EST Comment:RML Narrative Resulting Agency Comment Spec In Lab Sohail Medrano MD MICROBIOLOGY - GENERAL ORDERABLES Performing Organization Address [facility] Co de Phone Number [facility] [place] [address] * Flow Cytometry Report (08/28/2021 8:45 AM EST) Flow Cytometry Report [id number] ? Location: 4T; EA12; A The signing pathologist has (i) examined the relevant preparation(s) for the specimen(s) and (ii) rendered or confirmed the diagnosis(es). . ?Flow Cytometry DIAGNOSIS Flow cytometric diagnosis: ?? Normal immunophenotyping results. No monotypic B-cell population or phenotypically abnormal T-cell population or increase in blasts is detected. Please see morphology report for final delineation. NOTE: Some lymphomas are not detected by flow analysis. Electronically signed by: ?Flynn Gregg MD Verified: ??08/29/2021 17:08 ??Hematopathologist Performed at: ??-[facility] [place], [place], [place] DISCUSSION Blasts based on CD45 expression and orthogonal light scatter, are not increased. The T-lymphocytes, CD56+ NK cells and B- lymphocytes comprise approx 56%, 2%, 42% of the gated population, respectively. The CD19 positive B-cells have a polytypic expression of surface immunoglobulin light chain ([place]:Lambda ratio at 1.4). The T-cells are an admixture of CD4+ and CD8+ T lymphocytes (ratio of 3). No loss or atypical intensity distributions are seen for any lee T antigen (CD2, 3, 4+8, 5, 7). There is no increase in AD37-djrfuwyc/CD3-ne g NK cells. Flow analysis is an ancillary study. A definite diagnosis requires correlation with the morphologic features of this process and if necessary, correlation with other ancillary studies like immunohistochemistry , enzyme cytochemistry and/or cyto/ molecular genetics. This test was developed and its performance characteristics determined by the Clinical Flow Cytometry Laboratory at [facility]. It has not been cleared or approved by the U.S. Food and Drug Administration. ??The FDA has determined that such clearance or approval is not necessary. ??This test is used for clinical purposes. ??It should not be regarded as investigational or for research. This laboratory is certified under the Clinical Laboratory Improvement Act of 1988 (CLIA) as qualified to perform high complexity clinical laboratory testing. SPECIMEN PROCESSING [id number] Cells for immunophenotypic analysis were derived from station 7 lymph node. CD45 vs side scatter gating was utilized to identify a lymphoid analysis region that comprises approximately 89-90% of all cells. The following markers were assessed: CD2, CD3, CD4, CD5, CD7, CD8, CD10, CD19, CD45, CD56, kappa light chain, and lambda light chain. CLINICAL INFORMATION adenopathy [facility] 08/28/2021 8:45 AM EST Sohail Medrano MD PATHOLOGY/CYTOL OGY ORDERABLES Performing Organization Address [facility] [place] [address] * Immunophenotyping Flow Cytometry (08/28/2021 8:45 AM EST) Immunophenotyping Flow See Comment [facility] Comment: When completed by the Pathologist, the Flow Cytometry Report ([id number]) will display under the Pathology Results section within [facility]. Other 08/28/2021 8:45 AM EST 08/28/2021 9:39 AM EST Narrative Resulting Agency Comment Spec In Lab Sohail Medrano MD HEMATOLOGY ORDE RABLES Performing Organization Address [facility] [place] [address] documented in this encounter Visit Diagnoses Diagnosis Mediastinal adenopathy Enlargement of lymph nodes documented in this encounter Active and Recently Administered Medications Times are shown in EST. Continuous Medication Order 08/26/2021 08/27/2021 08/28/2021 lactated ringers infusion (CANCELED) 100 mL/hr, Intravenous, CONTINUOUS, Starting on Grecia 08/28/21 at 0745, Until Grecia 08/28/21 at 1012, Endoscopy (Day of Procedure) 0800 (New Bag - Prov ider: Liliana Rosado CRNA)0815 (Anesthesia Volume Adjustment - Provider: Liliana Rosado CRNA) documented in this encounter Care Teams Wafer Polishing Worker Relationship Specialty Start Date End Date Makenzie Pete MD [address] [place] [address] PCP - General Family Medicine 08/21/21 documented as of this encounter
--- OUTSIDE RECORDS SUMMARY | 2024-10-30 12:36 | XMS_ITS | Encounter Summary ---
Author Organization [facility] Address [address] [place] [address] Care Team Providers Care Plsql Developer Name Role Phone Unknown, Provider MD Primary Care Provider Unava ilable Encounter Details Date Type Department Care Team (Late st Contact Info) Description 08/13/2021 Lab Requisition [facility] & [facility] - [address] [address] Adriana Ramos MD [address] [place] [address], [address] [place] [address] Localized enlarged lymph nodes Social History Tobacco Use Types Packs/Day Years [...] Procedure Name Priority Date/Time Associated Diagnosis Comments LEUKEMIA/LYMPHOMA PANEL BY FLOW CYTOMETRY Today 08/12/2021 10:05 EDT Localized enlarged lymph nodes documented in this encounter Results * LEUKEMIA/LYMPHOMA PANEL BY FLOW CYTOMETRY (08/12/2021 10:05 EDT) Final Immunophenotypic Interpretation Peripheral blood, flow cytometric analysis: - No immunophenotypic evidence of a clonal cell population. See comment. 11:08 [facility] Comment The results of flow cytometry show no immunophenotypic evidence of involvement by a clonal lymphoproliferative or myeloproliferative disorder. Correlation of these findings with morphologic and clinical data is essential. 11:08 [facility] Attestation There was significant resident/fellow involvement in the diagnostic evaluation of this case. By the signature below, the attending physician certifies that they have personally conducted a gross and/or microscopic examination of the described specimens and rendered or confirmed the above diagnosis. 11:08 [facility] at 1108 Clinical History 50 yo female with mediastinal lymphadenopathy. 11:08 [facility] Description The specimen consists of peripheral blood that has been prepared using ammonium chloride lysing agent. Gating is performed using CD45 fluorescence and side scatter. Cellular viability (assessed by propidium iodide exclusion) is excellent (100%) among cells with CD45 and side scatter properties typical of lymphocytes and excellent (99%) among CD45+ events overall. Scatter plots incorporating all of the markers have been interpreted and evaluated for the presence or absence of abnormal cell populations. Only pertinent abnormal findings are included. If not otherwise addressed all other markers were normal/negative. A majority of the lymphoid cells are T-lymphocytes (CD2+CD3+CD5+CD7+) with CD4+ and CD8+ subsets represented. The remaining lymphocytes are B-lymphocytes (CD19+CD20+) and NK-cells (CD2+CD3-CD16+CD56+) . Among the B-cells, both kappa+ and lambda+ subsets are represented. The remainder of the CD45+ events is predominantly of myeloid lineage. There is no increase in blasts. 11:08 [facility] Flow Markers CD2, CD3, CD4, CD5, CD7, CD8, CD10, CD11b, CD11c, CD13, CD14, CD16, CD19, CD20, CD22, CD23, CD33, CD34, CD38, CD45, CD56, CD57, CD117, FMC7, HLADR, [place], and Lambda. 1 11:08 [facility] FDA Disclaimer This test was developed and its performance characteristics determined by the Department of Pathology and Laboratory Medicine, [facility], [place], [place]. It has not been cleared or approved by the U.S. Food and Drug Administration. FDA does not require this test to go through premarket FDA review. This test is used for clinical purposes. It should not be regarded as investigational or for research. This laboratory is certified under the Clinical Laboratory Improvement Amendments (CLIA) as qualified to perform high complexity clinical laboratory testing. 11:[address] [facility] Resident/Fellow: Usman Swan DO 11:[address] [facility] Scanned Images 11:[address] [facility] Blood VENOUS BLOOD / Unknown 08/12/2021 10:05 EDT 08/13/2021 7:32 EDT us Adriana Ramos MD PATHOLOGY ORDERABLES Final R esult [facility] [address] [place] [address] documented in this encounter Visit Diagnoses Diagnosis Localized enlarged lymph nodes Enlargement of lymph nodes documented in this encounter Care Teams Plsql Developer Relationship Specialty Start Date End Date Unknown, Provider, PCP - General 06/20/09 documented as of this encounter
--- OUTSIDE RECORDS SUMMARY | 2024-10-30 12:36 | XMS_ITS | Encounter Summary ---
Author Organization [facility] Address [address] [place] [address] Care Team Providers Care Senior Payroll Specialist Name Role Phone Unknown, Provider Primary Care Provider Unava ilable Encounter Details Date Type Department Care Team (Late st Contact Info) Description 03/24/2018 Results Only [facility] [phone] Makenzie Pete MD [address], [place] [id number] Social History Tobacco Use Types Packs/Day Years [...] Procedure Name Priority Date/Time Associated Diagnosis Comments PAP TEST- RESULT ONLY Routine 03/24/2018 0:00 EDT documented in this encounter Results * PAP TEST- RESULT ONLY (03/24/2018 0:00 EDT) Pathology Report: CYTOPATHOLOGY REPORT Reports generated via electronic interface contain original data; however they are lacking the format of the original report. Caution should be taken when reading/interpreti ng unformatted reports. Name: ? RAHEL OROURKE ? Accession #: ? [id number] : ? 1970 (Age: 47) ??F ?Collect Date: ? 03/24/2018 Location: ? [facility] ? Receive Date: ? 03/28/2018 Provider: ?MAKENZIE PETE MD Copy to: ? Specimen/Source: ?Pap Test, Cervix/Endocervix, ThinPrep Imaging System with manual evaluation Last Menstrual Period: ? Hormonal/Contracep tive Status: ? Intrauterine device: MIRENA Treatment History: ? 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 Additional clinical information: Z01.419 ? SPECIMEN ADEQUACY ? Satisfactory for Evaluation - transformation zone component present GENERAL CATEGORIZATION ? Negative for Intraepithelial Lesion or Malignancy INTERPRETATION ? Bacteria present morphologically consistent with Actinomyces species. Shift in vincenzo present suggestive of bacterial vaginosis. ? Document reviewed and electronically signed by: ? LEROY FERRARO MD ? Report Date: ??04/04/2018 13:56 End of Report [facility] 03/24/2018 03/28/2018 us Makenzie Pete MD PATHOLOGY ORDERABLES Final Resu lt [facility] [address] [place] [address] documented in this encounter Visit Diagnoses Not on filedocumented in this encounter Care Teams Senior Payroll Specialist Relationship Specialty Start Date End Date Unknown, Provider, PCP - General 06/20/09 documented as of this encounter
--- OUTSIDE RECORDS SUMMARY | 2024-10-30 12:36 | XMS_ITS | Encounter Summary ---
Author Organization [facility] Address [address] [place] [address] Care Team Providers Care Gas Generator Operator Name Role Phone Unknown, Provider Primary Care Provider Unava ilable Encounter Details Date Type Department Care Team (Latest Contact Info) Description 06/26/2021 Lab Requisition [facility] Pathology & Laboratory Medicine - [address] [address] Makenzie Pete MD [address] [place] [phone] Encounter for gynecological examination (general) (routine) without abnormal findings Social History Tobacco Use Types Packs/Day Years [...] Name Priority Date/Time Associated Diagnosis Comments PAP TEST Today 06/24/2021 14:00 EDT Encounter for gynecological examination (general) (routine) without abnormal findings HPV DNA DETECTION WITH GENOTYPING, PCR Today 06/24/2021 14:00 EDT Encounter for gynecological examination (general) (routine) without abnormal findings documented in this encounter Results * HUMAN PAPILLOMAVIRUS (HPV) DETECTION-HIGH RISK TYPES (06/24/2021 14:00 EDT) HPV other High Risk types, PCR Negative Negative 07/09/2021 15:11 EDT [facility] Comment:No E6 or E7 mRNA is detected from HPV types 16,18,31,33,35,39,45,51,52,56,58,59,66, and 68 by training program manager mediated amplification. Papanicolaou smear specimen (specimen) CERVIX UTERI STRUCTURE / Unknown 06/24/2021 14:00 EDT 07/07/2021 15:10 EDT us Makenzie Pete MD MICROBIOLOGY - GENERAL ORDERABL ES Final Result [facility] [address] [place] [id number] * PAP TEST (06/24/2021 14:00 EDT) Specimens A. Cervix and/or Endocervix , ThinPrep Imaging System with Manual Evaluation 07/09/2021 15:11 [facility] Specimen Adequacy Satisfactory for Evaluation - transformation zone component present 07/09/2021 15:11 [facility] General Categorization Negative for intraepithelial lesion or malignancy 07/09/2021 15:11 [facility] Attestation . 07/09/2021 15:11 [facility] at 1511 Clinical History See below 07/09/20 15:11 [facility] HPV The result for the Human Papillomavirus (HPV) Detection-High Risk Types is Negative. No E6 or E7 mRNA is detected from HPV types 16,18,31,33,35,39 ,45,51,52,56,58,5 9,66, and 68 by training program manager mediated amplification.Devi ting was performed on specimen [id number] and was resulted on 07/09/2021 1426 EDT by KIARA, LAB INSTRUMENT RESULTS IN 07/09/2021 15:11 [facility] Performing Lab [facility] 07/09/2021 15:11 [facility] Scanned Images 07/09/2021 15:11 [facility] Papanicolaou smear specimen (specimen) CERVIX UTERI STRUCTURE / Unknown 06/24/2021 14:00 EDT 06/26/2021 11:15 EDT us Makenzie Pete MD PATHOLOGY ORDERABLES Final Resu lt [facility] [address] [place] [address] documented in this encounter Visit Diagnoses Diagnosis Encounter for gynecological examination (general) (routine) without abnormal findings documented in this encounter Care Teams Gas Generator Operator Relationship Specialty Start Date End Date Unknown, Provider, PCP - General 06/20/09 documented as of this encounter
--- OUTSIDE RECORDS SUMMARY | 2024-10-30 12:36 | XMS_ITS | Encounter Summary ---
Author Organization [facility] Address [address] [place] [address] Care Team Providers Care Toe Pounder Name Role Phone Unknown, Provider Primary Care Provider Unava ilable Encounter Details Date Type Department Care Team (Late st Contact Info) Description 02/14/2016 Results Only [facility] [phone] Makenzie Pete MD [address] [place] [address] Social History Tobacco Use Types Packs/Day Years [...] Diagnosis Comments PAP TEST- RESULT ONLY Routine 02/14/2016 0:00 EDT documented in this encounter Results * PAP TEST- RESULT ONLY (02/14/2016 0:00 EDT) Pathology Report: CYTOPATHOLOGY REPORT Reports generated via electronic interface contain original data; however they are lacking the format of the original report. Caution should be taken when reading/interpreti ng unformatted reports. Name: ? RAHEL OROURKE ? Accession #: ? [id number] ? : ? 1970 (Age: 45) ??F ?Collect Date: ? 02/14/2016 ? Location: ? [facility] ? Receive Date: ? 02/18/2016 ? Provider: MAKENZIE PETE MD Copy to: ? Final Report SPECIMEN ADEQUACY ? Satisfactory for Evaluation - transformation zone component absent GENERAL CATEGORIZATION ? Negative for Intraepithelial Lesion or Malignancy INTERPRETATION ? Shift in vincenzo present suggestive of bacterial vaginosis. Hormonal/Contracep tive status: Intrauterine device: Mirena in place Treatment History: Cryotherapy: distant h/o Other: Additional clinical information: new partner Specimen/Source: ??Pap Test, Cervix/Endocervix, ThinPrep Imaging System with manual evaluation Document reviewed and electronically signed by: ? Zoila Tejeda, CT(ASCP) ? Report ??Date: 02/27/2016 13:27 HPV with Pap Test ? Date Ordered: ? 02/27/2016 ? Status: ?? Signed Out ?Date Complete: ? 03/02/2016 ? By: ??System Interface ? Date Reported: ? 03/02/2016 ? Interpretation RESULT: Positive for high or intermediate risk HPV. E6 OR E7 mRNA from one or more types of HPV types 16,18,31, 33,35,39,45,51,52, 56,58,59,66, and 68 is detected by laborer laboratory mediated amplification. High and intermediate risk HPV types are associated with most squamous intraepithelial lesions and cervical cancers. Comments Document reviewed and electronically signed by: ? System Interface ? Report date: 03/02/2016 By the signature above, the attending physician certifies that he/she has personally conducted a gross and/or microscopic examination of the described specimens and rendered or confirmed the above diagnosis. End of Report [facility] 02/14/2016 02/18/2016 us Makenzie Pete MD PATHOLOGY ORDERABLES Final Resu lt [facility] [address] [place] [address] documented in this encounter Visit Diagnoses Not on filedocumented in this encounter Care Teams Toe Pounder Relationship Specialty Start Date End Date Unknown, Provider, PCP - General 06/20/09 documented as of this encounter
--- OUTSIDE RECORDS SUMMARY | 2024-10-30 12:36 | XMS_ITS | Encounter Summary ---
Author Organization [facility] Address [address] [place] [address] Care Team Providers Care Functional Support Analyst Name Role Phone Unknown, Provider MD Primary Care Provider Unava ilable Encounter Details Date Type Department Care Team (Late st Contact Info) Description 06/21/2020 Lab Requisition [facility] Pathology & Laboratory Medicine - [address] [address] Outr Resulting Lab, Provider Social History Tobacco [...] Procedure Name Priority Date/Time Associated Diagnosis Comments LH Routine 06/20/2020 15:05 EDT FSH Routine 06/20/2020 15:05 EDT documented in this encounter Results * LH (06/20/2020 15:05 EDT) Luteinizing Hormone 2.3 See Note mIU/mL 06/24/2020 15:05 EDT [facility] Comment: NOTE: Female Reference Ranges: Pre-Pubertal: ?<6.0 mIU/mL Menstruating: Follicular Phase(-12 to -4 days: ??1.9 - 12.5 mIU/mL Midcycle(-3 to +2 days): ?8.7 - 76.3 mIU/mL Luteal Phase(+4 to +12 days): ? 0.5 - 16.9 mIU/mL Post Menopausal: 15.9 - 54.0 mIU/mL Blood VENOUS BLOOD / Unknown 06/20/2020 15:05 EDT 06/21/2020 17:39 EDT Provider Outr Resulting Lab CHEMISTRY & BLOOD GA S ORDERABLES Final Result Performing Organization Address [facility] de Phone Number [facility] [address] [place] [address] * FSH (06/20/2020 15:05 EDT) FSH 6.3 See Note mIU/mL 06/24/2020 15:05 EDT [facility] Blood VENOUS BLOOD / Unknown 06/20/2020 15:05 EDT 06/21/2020 17:39 EDT Narrative [facility] - 06/24/2020 15:05 EDT NOTE: Female FSH Reference Ranges (>= 13 Menstruating): PHYSIOLOGICAL STATUS ? REFERENCE RANGE ? Follicular (-12 to -4 days): ?? 2.5 - 10.2 mIU/mL Midcycle (-3 to +2 days): ?3.4 - 33.4 mIU/mL Luteal (+4 to +12 days): ? 1.5 - 9.1 mIU/mL Postmenopausal: ?23.0 - 116.3 mIU/mL Reference Ranges for female patients <13 years old have not been established. us Provider Outr Resulting Lab CHEMISTRY & BLOOD GA S ORDERABLES Final Result Performing Organization Address [facility]/ZIP Co de Phone Number [facility] [address] [place] [id number] documented in this encounter Visit Diagnoses Not on filedocumented in this encounter Care Teams Functional Support Analyst Relationship Specialty Start Date End Date Unknown, Provider, PCP - General 06/20/09 documented as of this encounter
--- OUTSIDE RECORDS SUMMARY | 2024-10-30 12:36 | XMS_ITS | Clinical Summary ---
Author Organization [facility] Address [facility] [place] [address] Care Team Providers Care Chief Accounting Officer Name Role Phone Makenzie Pete MD Primary Care Provider [phone] Allergies Active Allergy Reactions Criticality Noted Date Comments Clemastine Fumarate High CIS - Anaphylaxis Medications Medication Sig Dispensed Refills Start Date End Date Status multivitamin (THERAGRAN) tablet 07/22/2006 Active citalopram (CeleXA) 20 mg Tablet 06/26/2021 Active cholecalciferol, Vitamin D3, (cholecalciferol, Vitamin D3,) 50 mcg (2,000 unit) Capsule Take 5,000 Units by mouth. Active b complex vitamins Capsule Take 1 capsule by mouth daily. Active Social History Tobacco Use Types Packs/Day Years Used Date Smoking Tobacco: Former Smokeless Tobacco: Never Alcohol Use Standard Drinks/Week Comments Yes 7 (1 standard drink = 0.6 oz pur e alcohol) Sex and Gender Information Value Date Recorded Sex Assigned at Not on file Gender Identity Not on file Sexual Orientation Not on file Last Filed Vital Signs Vital Sign Reading Time Taken Comments Blood Pressure 119/90 08/28/2021 10:00 AM EST Pulse 87 08/28/2021 9:09 AM EST Temperature 36.4 ??C (97.6 ??F) 08/28/2021 7:25 AM ES T Respiratory Rate 16 08/28/2021 10:00 AM EST Oxygen Saturation 93% 08/28/2021 10:00 AM EST Inhaled Oxygen Concentration - - Weight 77.1 kg (170 lb) 08/28/2021 7:25 AM EST Height 170.2 cm (5' 7) 08/28/2021 7:25 AM EST Body Mass Index 26.63 08/28/2021 7:25 AM EST Plan of Treatment Health Maintenance Due Date Last Done Comments CT Colonography 1970 Colonoscopy 1970 Colorectal Cancer Screening 1970 FIT DNA 1970 FIT 1970 Sigmoidoscopy (10 year) with FIT yearly 1970 Sigmoidoscopy 1970 HIV screen 1988 Hepatitis C Screening 1988 Hepatitis B vaccine (0-59 yrs) (1) 1989 Tetanus/Diphtheria/Pertussis Vaccines (1 - Tdap) 10/11 HPV test 2000 PAP Smear 2000 Breast Cancer Share Decision Needed 2010 Breast Cancer screening 2010 Pneumoccocal Vaccine: 50+ (1 of 1 - PCV) 2020 Zoster vaccine (1 of 2) 2020 Covid-19 Vaccine (1 - 2023-25 season) 2024 Influenza (Flu) vaccine (1 o f 1 - Influenza standard series) 06/11/2024 Care Teams Chief Accounting Officer Relationship Specialty Start Date End Date Makenzie Pete MD [address] [place] [address] PCP - General Family Medicine 08/21/21
--- OUTSIDE RECORDS SUMMARY | 2024-10-30 12:36 | XMS_ITS | Encounter Summary ---
[place] [address] Care Team Providers Care Home Health Clinician Name Role Phone Unknown Primary Care Provider Unavailabl e Encounter Details Date Type Department Care Team (Late st Contact Info) Description 08/15/2021 [place] [id number] Rut Montez Social History Tobacco Use Types Packs/Day Years Used Date Smoking Tobacco: Never Assessed Sex and Gender Information Value Date Recorded Sex Assigned at Not on file Gender Identity Not on file Sexual Orientation Not on file documented as of this encounter Plan of Treatment Not on file documented as of this encounter Visit Diagnoses Not on filedocumented in this encounter Care Teams Home Health Clinician Relationship Specialty Start Date End Date Unknown None PCP - General 08/21/11 08/20/21 documented as of this encounter
--- OUTSIDE RECORDS SUMMARY | 2024-10-30 12:36 | XMS_ITS | Encounter Summary ---
Author Organization [facility] Address [address] [place] [address] Care Team Providers Care Form Setter Steel Forms Name Role Phone Unknown, Provider Primary Care Provider Unava ilable Encounter Details Date Type Department Care Team (Late st Contact Info) Description 08/13/2000 Results Only [facility] [address] [place] [address] Ericka Osman MD [address] [place] [address] Social History Tobacco Use Types Packs/Day Years [...] Procedure Name Priority Date/Time Associated Diagnosis Comments CYTOPATHOLOGY Routine 08/13/2000 0:00 EST documented in this encounter Results * CYTOPATHOLOGY (08/13/2000 0:00 EST) Pathology Report: CYTOPATHOLOGY REPORT Reports generated via electronic interface contain original data; however they are lacking the format of the original report. Caution should be taken when reading/interpreti ng unformatted reports. Name: ? RAHEL DELAROSA ? Accession #: ? [id number] : ? 1970 (Age: 29) ??F ?Collect Date: ? 08/13/2000 Location: ? [facility] ? Receive Date: ? 08/16/2000 Provider: ?ERICKA OSMAN MD Copy to: ? Specimen/Source: ?ThinPrep Pap Test, Vagina/Cervix/Endo cervix Last Menstrual Period: ? 07/25/00 ? SPECIMEN ADEQUACY ? Satisfactory for evaluation. GENERAL CATEGORIZATION ? Within Normal Limits ? Document reviewed and electronically signed by: ? Zoila Tejeda CT(ASCP) ? Report Date: ??08/23/2000 12:54 End of Report [facility] 08/13/2000 08/16/2000 us Ericka Osman MD PATHOLOGY ORDERABLES Final Re sult [facility] [address] [place] [address] documented in this encounter Visit Diagnoses Not on filedocumented in this encounter Care Teams Form Setter Steel Forms Relationship Specialty Start Date End Date Unknown, Provider, PCP - General 06/20/09 documented as of this encounter
--- OUTSIDE RECORDS SUMMARY | 2024-10-30 12:36 | XMS_ITS | Encounter Summary ---
Author Organization [facility] Address [address] [place] [address] Care Team Providers Care Try On Baster Name Role Phone Unknown, Provider Primary Care Provider Unava ilable Encounter Details Date Type Department Care Team (Late st Contact Info) Description 08/11/2007 Results Only [facility] [place] conversion [address] [place] [address] Mely Rothman PA Social History Tobacco Use Types Packs/Day Years [...] Priority Date/Time Associated Diagnosis Comments CYTOPATHOLOGY Routine 08/11/2007 0:00 EDT documented in this encounter Results * CYTOPATHOLOGY (08/11/2007 0:00 EDT) Pathology Report: CYTOPATHOLOGY REPORT Reports generated via electronic interface contain original data; however they are lacking the format of the original report. Caution should be taken when reading/interpreti ng unformatted reports. Name: ? RAHEL OROURKE Henrique ? Accession #: ? [id number] : ? 1970 (Age: 36) ??F ?Collect Date: ? 08/11/2007 Location: ? [facility] ? Receive Date: ? 08/15/2007 Provider: ?MELY CHAVEZ Copy to: ? Specimen/Source: ?ThinPrep Pap Test, Cervix/Endocervix, processed on [employer] ThinPrep Imaging System, with manual evaluation Last Menstrual Period: ? Unknown Other: ? HPVA - HPV testing requested if ASC-US on the current ThinPrep Pap test. ? SPECIMEN ADEQUACY ? Unsatisfactory for Evaluation, - insufficient numbers of squamous epithelial cells (less than 10% of expected cellularity) - sample preparation compromised by excessive blood GENERAL CATEGORIZATION ? Specimen processed and examined, but unsatisfactory for evaluation of epithelial abnormality. Recommend repeat Pap test or further follow up, as clinically indicated. ? Document reviewed and electronically signed by: ? MELISSA Lazar(ASCP) ? Report Date: ??08/22/2007 09:32 End of Report [facility] 08/11/2007 08/15/2007 us Mely CHAVEZ PATHOLOGY ORDERABLES Final Resul t [facility] [address] [place] [address] documented in this encounter Visit Diagnoses Not on filedocumented in this encounter Care Teams Try On Baster Relationship Specialty Start Date End Date Unknown, Provider, PCP - General 06/20/09 documented as of this encounter
--- OUTSIDE RECORDS SUMMARY | 2024-10-30 12:36 | XMS_ITS | Encounter Summary ---
Author Organization [facility] Address [address] [place] [address] Care Team Providers Care Scheduling Coordinator Name Role Phone Unknown, Provider Primary Care Provider Unava ilable Encounter Details Date Type Department Care Team (Late st Contact Info) Description 07/09/2022 Lab Requisition [facility] Pathology & Laboratory Medicine - [address] [address] Outr Resulting Lab, Provider Social History Tobacco [...] Procedure Name Priority Date/Time Associated Diagnosis Comments QUANTIFERON MITOGEN (PERFORMABLE) Today 07/08/2022 15:27 EDT QUANTIFERON TB2 (PERFORMABLE) Today 07/08/2022 15:27 EDT QUANTIFERON TB1 (PERFORMABLE) Today 07/08/2022 15:27 EDT QUANTIFERON NIL (PERFORMABLE) Today 07/08/2022 15:27 EDT QUANTIFERON INTERPRETATION (PERFORMABLE) Today 07/08/2022 15:27 EDT QUANTIFERON TB GOLD PLUS Routine 07/08/2022 15:27 EDT documented in this encounter Results * QUANTIFERON INTERPRETATION (PERFORMABLE) (07/08/2022 15:27 EDT) Quantiferon Interpretation Negative Negative 07/10/2022 12:41 EDT [facility] Comment:No interferon-gamma response to M. tuberculosis antigens was detected. ??Infection with M. tuberculosis is unlikely. A single negative result does not exclude infection with M. tuberculosis. ??In patients at high risk for M. tuberculosis infection, a second test should be considered. TB1 Ag minus Nil 0.01 IU/ml 07/10/20 12:41 EDT [facility] TB2 Ag minus Nil 0.01 IU/mL 07/10/20 12:41 EDT [facility] Blood VENOUS BLOOD / Unknown 07/08/2022 15:27 EDT 07/10/2022 12:07 EDT Narrative [facility] - 07/10/2022 12:41 EDT Results were obtained with the [employer] QuantiFERON-TB Gold Plus CLIA. New platform in use 06/18/2021 us Provider Outr Resulting Lab IMMUNOLOGY AND SEROL OGY ORDERABLES Final Result Performing Organization Address [facility] de Phone Number [facility] [address] [place] [phone] * QUANTIFERON MITOGEN (PERFORMABLE) (07/08/2022 15:27 EDT) Blood VENOUS BLOOD / Unknown 07/08/2022 15:27 EDT 07/09/2022 18:17 EDT us Provider Outr Resulting Lab IMMUNOLOGY AND SEROL OGY ORDERABLES Final Result Performing Organization Address [facility] Co de Phone Number [facility] [address] [place] [phone] * QUANTIFERON TB2 (PERFORMABLE) (07/08/2022 15:27 EDT) Blood VENOUS BLOOD / Unknown 07/08/2022 15:27 EDT 07/09/2022 18:17 EDT us Provider Outr Resulting Lab IMMUNOLOGY AND SEROL OGY ORDERABLES Final Result Performing Organization Address [facility] Co de Phone Number [facility] [address] [place] [phone] * QUANTIFERON TB1 (PERFORMABLE) (07/08/2022 15:27 EDT) Blood VENOUS BLOOD / Unknown 07/08/2022 15:27 EDT 07/09/2022 18:17 EDT us Provider Outr Resulting Lab IMMUNOLOGY AND SEROL OGY ORDERABLES Final Result Performing Organization Address City/[facility] Co de Phone Number [facility] [address] [place] [address] * QUANTIFERON NIL (PERFORMABLE) (07/08/2022 15:27 EDT) Blood VENOUS BLOOD / Unknown 07/08/2022 15:27 EDT 07/09/2022 18:17 EDT us Provider Outr Resulting Lab IMMUNOLOGY AND SEROL OGY ORDERABLES Final Result Performing Organization Address City/[facility] Co de Phone Number [facility] [address] [place] [address] documented in this encounter Visit Diagnoses Not on filedocumented in this encounter Care Teams Scheduling Coordinator Relationship Specialty Start Date End Date Unknown, Provider, PCP - General 06/20/09 documented as of this encounter
--- OUTSIDE RECORDS SUMMARY | 2024-10-30 12:36 | XMS_ITS | Encounter Summary ---
Author Organization [facility] Address [address] [place] [address] Care Team Providers Care Straightener Hand Name Role Phone Unknown, Provider Primary Care Provider Unava ilable Encounter Details Date Type Department Care Team (Late st Contact Info) Description 12/20/2009 Results Only [facility] Laboratory Services - [facility] ([facility]) [address] [place] [address] Kelsey Mcdaniel [place], [place] [id number] Social History Tobacco Use Types Packs/Day Years [...] Priority Date/Time Associated Diagnosis Comments CYTOPATHOLOGY Routine 12/20/2009 0:00 EST documented in this encounter Results * CYTOPATHOLOGY (12/20/2009 0:00 EST) Pathology Report: CYTOPATHOLOGY REPORT ? Reports generated via electronic interface contain original data; ? however they are lacking the format of the original report. ? Caution should be taken when reading/interpreti ng unformatted reports. ? Name: ? RAHEL OROURKE S ? Accession #: ? [id number] ? : ? 1970 (Age: 39) ??F ?Collect Date: ? 12/20/2009 ? Location: ? [facility] ? Receive Date: ? 12/23/2009 ? Provider: ?KELSEY MCDANIEL CNM ? Copy to: ? Specimen/Source: ?Pap Test, Cervix/Endocervix, ThinPrep Imaging System ? with manual evaluation ? Last Menstrual Period: ? 04/25/09 ? Menstrual/Pregnanc y Status: ? Post ? Other: ? HPVA - HPV testing requested if ASC-US on the current ThinPrep Pap test. ? SPECIMEN ADEQUACY ? Satisfactory for Evaluation ? - transformation zone component present ? GENERAL CATEGORIZATION ? Negative for Intraepithelial Lesion or Malignancy ? Document reviewed and electronically signed by: ? Juventino Queen, CT(ASCP) ? Report Date: ??12/25/2009 09:41 ? End of Report ? [facility] 12/20/2009 12/23/2009 us Kelsey Mcdaniel CNM PATHOLOGY ORDERABLES Final Res ult [facility] [address] [place] [address] documented in this encounter Visit Diagnoses Not on filedocumented in this encounter Care Teams Straightener Hand Relationship Specialty Start Date End Date Unknown, Provider, PCP - General 06/20/09 documented as of this encounter
--- OUTSIDE RECORDS SUMMARY | 2024-10-30 12:36 | XMS_ITS | Encounter Summary ---
Author Organization [facility] [place] [address] Care Team Providers Care Speech And Language Assistant Name Role Phone Makenzie Pete MD Primary Care Provider [phone] Reason for Visit * Auth/Cert Specialty Diagnoses / Procedures Referred By Contmanfred t Referred To Contact Diagnoses Mediastinal adenopathy Mediastinal adenopathy/ Bronchoscopy with EBUS/ GA/ Mitchell Procedures PRO [facility] EBUS GUIDED SAMPL 1/2 NODE STATION/STRUX BRONCH, W ENDOBRONCHIAL ULTRASOUND (EBUS) GUIDED SAMPLING, 1/2 NODES (WRVU 4.71) Referral ID Status Reason Start Date Expiration Date Visits Re quested Visits Authorized [id number] 1 1 Encounter Details Date Type Department Care Team (Late st Contact Info) Description 08/28/2021 8:00 AM EST Anesthesia [place] [address] Giovanni Garcia MD [facility] [place] [address] Liliana Rosado CRNA Anesthesia Record Procedure Summary Procedure Name Responsible Anesthesiologist Anesthesia Start Time Anesthesia Stop Time BRONCHOSCOPY, RIGID OR FLEXIBLE, WITH BRONCHIAL ALVEOLAR LAVAGE (WRVU 2.63) (Chest) Giovanni Garcia MD 08/28/21 0800 08/28/21 0920 Events Date Time Event Comment 08/28/2021 0725 0800 AN Verify 0800 Start 0800 An Start Data 0810 An Induction 0811 An Intubation 0814 Anesthesia Ready 0859 Extubation/LMA Out 0904 an stop data 0920 Recovery or ICU Handoff Latoya ent care was transferred to the destination unit staff after review of the patient's medical history, current anesthetic/surgical status and plan, according to the Provider Handoff Checklist. 919 Stop Meds Name Total Propofol 350 mg Propofol INF 260.21 mg IV Lidocaine 100 mg Dexamethasone 8 mg Ondansetron 8 mg ePHEDrine 10 mg Dexmedetomidine 20 mcg lactated ringers infusion 200 mL * Agents Name O2 Air N2O Sevoflurane (et) * Blood No blood administrations on file. Lines, Drains, and Airways Type Details Placement Removal (RETIRED) Peripheral IV Line - Single Lumen 08/28/21; 736; median vein (underside of arm), right; [id number] catheter system; 22 gauge; amaya; distraction; 08/28/21; 1012 08/28/21 0737 by Vicky Aldana RN 08/28/21 101 by Moira Lucio RN Supraglottic Mask Ventilation: Easy (1); LMA Type: Unique; LMA Size: 4; Inserted by: Ashlee; Removal Date: 08/28/21; Removal Time: 85808/28/21 0811 by Liliana Rosado CRNA 08/28/21 0859 by Liliana Rosado CRNA documented in this encounter Social History Tobacco Use Types Packs/Day Years Used Date Smoking Tobacco: Former Smokeless Tobacco: Never Alcohol Use Standard Drinks/Week Comments Yes 7 (1 standard drink = 0.6 oz pur e alcohol) Sex and Gender Information Value Date Recorded Sex Assigned at Not on file Gender Identity Not on file Sexual Orientation Not on file documented as of this encounter OR Notes * Anesthesia Postprocedure Evaluation - Giovanni Garcia MD - 08/28/2021 10:25 AM EST Department of Anesthesiology Post-procedure Note Patient: Yaritza Orourke Procedure Summary Date: 08/28/21 Room / Location: [facility] ENDO 1 / [facility] Anesthesia Start: 0800 Anesthesia Stop: 919 Procedures: BRONCHOSCOPY, RIGID OR FLEXIBLE, WITH BRONCHIAL ALVEOLAR LAVAGE (WRVU 2.88) (N/A Chest) BRONCH, W ENDOBRONCHIAL ULTRASOUND (EBUS) GUIDED SAMPLING, 3+ NODES (WRVU 5.21) (N/A ) BRONCH, W EBUS DURING INTERVENTION FOR PERIPH LESION (WRVU 1.4) (N/A ) BRONCHOSCOPY, WITH BIOPSY (WRVU 3.36) (N/A ) Diagnosis: Mediastinal adenopathy (Mediastinal adenopathy/ Bronchoscopy with EBUS/ GA/ Mitchell) Surgeons: Sohail Medrano MD Responsible Provider: Giovanni Garcia MD Anesthesia Type: general ASA Status: 2 All Anesthesia Providers: Anesthesiologist: Giovanni Garcia MD SLOT SUPERVISOR: Liliana Rosado CRNA Vitals Value Taken Time BP 119/90 08/28/21 1000 Temp Pulse 87 08/28/21 0909 Resp 16 08/28/21 1000 SpO2 97 % 08/28/21 1002 Pain Level 0 08/28/21 1000 Vitals shown include unvalidated device data. Patient Location: PACU/[facility] Level of Consciousness: Awake and Alert Pain Management: Satisfactory Analgesia PONV: None Cardiovascular Status: At Baseline Respiratory Status: At Baseline Postoperative Fluid Status: Intravascular EUvolemia Possible Anesthetic Complications: NONE apparent at time of evaluation Final Primary Anesthesia Type: General (The anesthetic type performed was the same as planned.) Comments: * Anesthesia Preprocedure Evaluation - Giovanni Garcia MD - 08/27/2021 3:09 PM EST Images from the original note were not included. Pre-Anesthesia Evaluation for: Yaritza Orourke a 50 y.o. female. Procedure(s): BRONCH, W ENDOBRONCHIAL ULTRASOUND (EBUS) GUIDED SAMPLING, 1/2 NODES (WRVU 4.71) There are no problems to display for this patient. No past medical history on file. No past surgical history on file. Social History Tobacco Use ??? Smoking status: Not on file ??? Smokeless tobacco: Not on file Substance Use Topics ??? Alcohol use: Not on file Social History Substance and Sexual Activity Drug Use Not on file Allergies Allergen Reactions ??? Clemastine Fumarate CIS - Anaphylaxis Medications: MAR and/or home medications have been reviewed. Physical Exam: Preprocedure Vitals Current as of 08/27/21 1509 No BP, pulse, respiration, SpO2, or temperature recorded. Height: Weight: BMI: IBW: Airway Assessment: Mallampati: I TM distance: >3 FB Neck ROM: full Cardiovascular Assessment: Rhythm: regular Rate: normal system normal Pulmonary Assessment: unlabored breathing pulmonary exam normal Dental Assessment: Misc Assessment: IV access: Peripheral line Last Filed Perioperative Cognitive Screening None Anesthesia Plan: ASA 2 general, with a(n) intravenous induction 50 yo woman, current smoker (35 pack year history) and sarcoidosis with mediastinal and hilar lymphadenopathy for diagnostic bronchoscopy and EBUS Chart and labs reviewed; patient seen and examined Impression/Plan: ASA 2 GA/ETT; routine monitors Risks, plans, and procedures discussed with patient who understands and consents; questions and concerns addressed Region - Other Informed Consent: Anesthetic plan and risks discussed with patient. Use of blood products discussed with patient who consented to blood products. Plan discussed with SLOT SUPERVISOR. Anesthesia Screening documented in this encounter Plan of Treatment Not on file documented as of this encounter Visit Diagnoses Not on filedocumented in this encounter Administered Medications Inactive Administered Medications - up to 3 most recent administrations Medication Order MAR Action Action Date Dose Rate Site dexamethasone (Decadron) injection Intravenous, PRN, Starting on Grecia 08/28/21 at 0814, Until Grecia 08/28/21 at 0920, Anesthesia Intra-op, Routine Given 08/28/2021 8:14 AM EST 8 mg dexmedetomidine (Precedex) (4 mcg/mL) bolus injection (Anesthsia) Intravenous, PRN, Starting on Grecia 08/28/21 at 0810, Until Grecia 08/28/21 at 0920, Anesthesia Intra-op, Routine Given 08/28/2021 8:10 AM EST 20 mcg ePHEDrine sulfate (5 mg/mL) multi-dose injection Intravenous, PRN, Starting on Grecia 08/28/21 at 0832, Until Grecia 08/28/21 at 0920, Anesthesia Intra-op, Routine Given 08/28/2021 8:32 AM EST 10 mg lactated ringers infusion 100 mL/hr, Intravenous, CONTINUOUS, Starting on Grecia 08/28/21 at 0745, Until Grecia 08/28/21 at 1012, Endoscopy (Day of Procedure) New Bag 08/28/2021 8:00 AM EST lidocaine (pf) (Xylocaine) (20 mg/mL) 2% injection syringe Intravenous, PRN, Starting on Grecia 08/28/21 at 0810, Until Grecia 08/28/21 at 0920, Anesthesia Intra-op, Routine Given 08/28/2021 8:10 AM EST 100 mg ondansetron (pf) (Zofran) (2 mg/mL) injection Intravenous, PRN, Starting on Grecia 08/28/21 at 0806, Until Grecia 08/28/21 at 0920, Anesthesia Intra-op, Routine Given 08/28/2021 8:06 AM EST 8 mg propofoL (Diprivan) (10 mg/mL) infusion Intravenous, CONTINUOUS PRN, Starting on Grecia 08/28/21 at 0810, Until Grecia 08/28/21 at 0920, Anesthesia Intra-op, Routine New Bag 08/28/2021 8:10 AM EST 75 mcg/kg/min 34.695 mL/hr propofoL (Diprivan) 10 mg/mL bolus injection (Anesthesia) Intravenous, PRN, Starting on Grecia 08/28/21 at 0810, Until Grecia 08/28/21 at 0920, Anesthesia Intra-op Given 08/28/2021 8:17 AM EST 100 mg Given 08/28/2021 8:10 AM EST 250 mg documented in this encounter Care Teams Speech And Language Assistant Relationship Specialty Start Date End Date Makenzie Pete MD [address] [place] [address] PCP - General Family Medicine 08/21/21 documented as of this encounter
--- OUTSIDE RECORDS SUMMARY | 2024-10-30 12:36 | XMS_ITS | Encounter Summary ---
Author Organization [facility] Address [facility] [place] [address] Care Team Providers Care Sales Consultant Residential Manager Name Role Phone Unknown Primary Care Provider Unavailabl e Encounter Details Date Type Department Care Team (Late st Contact Info) Description 07/23/2021 Ancillary Procedure Radiology Library at [facility] [place] [address] Makenzie Pete MD [address] [place] [address] Social History Tobacco Use Types Packs/Day Years Used Date Smoking Tobacco: Never Assessed Sex and Gender Information Value Date Recorded Sex Assigned at Not on file Gender Identity Not on file Sexual Orientation Not on file documented as of this encounter Plan of Treatment Not on file documented as of this encounter Procedures Procedure Name Priority Date/Time Associated Diagnosis Comments FILM LIBRARY STORAGE ONLY CT CHEST Routine 07/23/2021 12:00 AM EDT documented in this encounter Results * Film Library- Storage Only CT Chest (07/23/2021 12:00 AM EDT) Narrative [facility] [place] - 08/07/2021 10:31 AM EDT This exam is auto-finalizing. It's purpose is for storage only. Makenzie Pete MD IMG FILM LIBRARY ORD ERABLES [place], [place] documented in this encounter Visit Diagnoses Not on filedocumented in this encounter Care Teams Sales Consultant Residential Manager Relationship Specialty Start Date End Date Unknown None PCP - General 08/21/11 08/20/21 documented as of this encounter
--- OUTSIDE RECORDS SUMMARY | 2024-10-30 12:36 | XMS_ITS | Encounter Summary ---
Author Organization [facility] Address [address] [place] [address] Care Team Providers Care Dental Intern Name Role Phone Unknown, Provider MD Primary Care Provider Unava ilable Encounter Details Date Type Department Care Team (Late st Contact Info) Description 07/08/2022 Lab Requisition [facility] Pathology & Laboratory Medicine - [address] [address] Outr Resulting Lab, Provider Social History Tobacco [...] Procedure Name Priority Date/Time Associated Diagnosis Comments HOLD SST Today 07/08/2022 15:27 EDT MEASLES IGG AB Today 07/08/2022 15:27 EDT RUBELLA IGG ANTIBODY Today 07/08/2022 15:27 EDT MUMPS ANTIBODY IGG Today 07/08/2022 15 :27 EDT documented in this encounter Results * HOLD SST (07/08/2022 15:27 EDT) Hold Hold 07/08/2022 22:31 EDT [facility] Blood VENOUS BLOOD / Unknown 07/08/2022 15:27 EDT 07/08/2022 21:15 EDT us Provider Outr Resulting Lab LAB INFO SERVICE AND SUPPORT & PHONE RESULT Final Result Performing Organization Address [facility] Co de Phone Number [facility] [address] [place] [address] * MEASLES IGG AB (07/08/2022 15:27 EDT) Measles IgG Ab Positive See Note 07/09/2022 8:50 EDT [facility] Comment:Presence of detectab le measles virus IgG antibodies. Blood VENOUS BLOOD / Unknown 07/08/2022 15:27 EDT 07/08/2022 21:15 EDT us Provider Outr Resulting Lab IMMUNOLOGY AND SEROL OGY ORDERABLES Final Result Performing Organization Address [facility] Co de Phone Number [facility] [address] [place] [address] * MUMPS ANTIBODY IGG (07/08/2022 15:27 EDT) Mumps Antibody IgG Negative See Note 07/09/2022 8:51 EDT [facility] Comment:Absence of detectabl e mumps virus IgG antibodies. A negative result generally indicates that the patient is susceptible to mumps. Blood VENOUS BLOOD / Unknown 07/08/2022 15:27 EDT 07/08/2022 21:15 EDT us Provider Outr Resulting Lab IMMUNOLOGY AND SEROL OGY ORDERABLES Final Result Performing Organization Address [facility] Co de Phone Number [facility] [address] [place] [address] * RUBELLA IGG ANTIBODY (07/08/2022 15:27 EDT) Rubella IgG Ab Positive See Note 07/09/2022 8:51 EDT [facility] Comment:Positive for IgG ant ibodies to Rubella virus. Blood VENOUS BLOOD / Unknown 07/08/2022 15:27 EDT 07/08/2022 21:15 EDT us Provider Outr Resulting Lab CHEMISTRY & BLOOD GA S ORDERABLES Final Result [facility] [address] [place] [address] documented in this encounter Visit Diagnoses Not on filedocumented in this encounter Care Teams Dental Intern Relationship Specialty Start Date End Date Unknown, Provider, PCP - General 06/20/09 documented as of this encounter
--- OUTSIDE RECORDS SUMMARY | 2024-10-30 12:36 | XMS_ITS | Encounter Summary ---
Author Organization [facility] Address [address] [place] [address] Care Team Providers Care Pediatric Pathologist Name Role Phone Unavailable Primary Care Provider Unavailabl e Encounter Details Date Type Department Care Team (Latest Contact Info) Description 06/19/2009 14:22 EDT - 06/19/2009 14:23 EDT Hospital Encounter [facility] - Other [address] [place] [address] [place] [id number] Discharge Disposition: Home or Self Care Social History Tobacco Use Types Packs/Day Years Used Date Smoking Tobacco: Never Assessed Comments Unknown Sex and Gender Information Value Date Recorded Sex Assigned at Not on file Legal Sex Female 18:20 EST Gender Identity Not on file Sexual Orientation Not on file documented as of this encounter Discharge Disposition Disposition Code Departure Means Destination Home or Self Care documented in this encounter Plan of Treatment Not on file documented as of this encounter Visit Diagnoses Not on filedocumented in this encounter
--- OUTSIDE RECORDS SUMMARY | 2024-10-30 12:36 | XMS_ITS | Encounter Summary ---
Author Organization [facility] Address [address] [place], [place] [id number] Care Team Providers Care Cotton Ginner Helper Name Role Phone Unknown, Provider Primary Care Provider Unava ilable Encounter Details Date Type Department Care Team (Late st Contact Info) Description 01/29/2014 Results Only [facility] Laboratory Services - [address] [address] Mely Rothman PA Social History Tobacco Use [...] Diagnosis Comments PAP TEST- RESULT ONLY Routine 01/29/2014 0:00 EDT documented in this encounter Results * PAP TEST- RESULT ONLY (01/29/2014 0:00 EDT) Pathology Report: CYTOPATHOLOGY REPORT Reports generated via electronic interface contain original data; however they are lacking the format of the original report. Caution should be taken when reading/interpreti ng unformatted reports. Name: ? RAHEL OROURKE ? Accession #: ? [id number] ? : ? 1970 (Age: 43) ??F ?Collect Date: ? 01/29/2014 ? Location: ? [facility] ? Receive Date: ? 01/30/2014 ? Provider: MELY CHAVEZ Copy to: ? Final Report SPECIMEN ADEQUACY ? Satisfactory for Evaluation - transformation zone component present GENERAL CATEGORIZATION ? Negative for Intraepithelial Lesion or Malignancy INTERPRETATION ? Shift in vincenzo present suggestive of bacterial vaginosis. Last Menstrual Period: 2009 Hormonal/Contracep tive status: Intrauterine device Specimen/Source: ??Pap Test, Cervix/Endocervix, ThinPrep Imaging System with manual evaluation Document reviewed and electronically signed by: ? Adeline Restrepo, CT(ASCP) ? Report ??Date: 02/08/2014 08:55 HPV with Pap Test ? Date Ordered: ? 02/08/2014 ? Status: ?? Signed Out ?Date Complete: ? 02/12/2014 ? By: ??System Interface ? Date Reported: ? 02/12/2014 ? Interpretation RESULT: Negative for HPV. No E6 or E7 mRNA is detected from HPV types 16,18,31,33,35, 39,45,51,52,56,58, 59,66, and 68 by metal numerical control programmer mediated amplification. Comments Document reviewed and electronically signed by: ? System Interface ? Report date: 02/12/2014 By the signature above, the attending physician certifies that he/she has personally conducted a gross and/or microscopic examination of the described specimens and rendered or confirmed the above diagnosis. End of Report [facility] 01/29/2014 01/30/2014 us Mely CHAVEZ PATHOLOGY ORDERABLES Final Resul t [facility] [address] [place] [address] documented in this encounter Visit Diagnoses Not on filedocumented in this encounter Care Teams Cotton Ginner Helper Relationship Specialty Start Date End Date Unknown, Provider, PCP - General 06/20/09 documented as of this encounter
--- OUTSIDE RECORDS SUMMARY | 2024-10-30 12:36 | XMS_ITS | Encounter Summary ---
Author Organization [facility] Address [facility] [place] [address] Care Team Providers Care Discovery Manager Name Role Phone Makenzie Pete MD Primary Care Provider [phone] Reason for Visit * Reason Onset Date Comments Other 09/09/2021 follow up call r egarding bronch results Encounter Details Date Type Department Care Team (Late st Contact Info) Description 09/09/2021 Telephone Pulmonology at [facility] [place] [address] Denice Cabrera RN Other (follow up call regarding bronch results) Social History Tobacco Use Types Packs/Day Years Used Date Smoking Tobacco: Former Smokeless Tobacco: Never Alcohol Use Standard Drinks/Week Comments Yes 7 (1 standard drink = 0.6 oz pur e alcohol) Sex and Gender Information Value Date Recorded Sex Assigned at Not on file Gender Identity Not on file Sexual Orientation Not on file documented as of this encounter Miscellaneous Notes * Telephone Encounter - Denice Cabrera RN - 09/09/2021 9:51 AM EST I have called Dr. Ramos's office at [phone] and left message regarding pt. I have received avm back from [facility] stating that they will see this pt on 09/24/[address] Smith will discuss with pt her bronch results during that visit. They have access to our EMR and won't be needingany copy of the results from us so far, but if they need anything, they will reach out to us. Denice J. Belardo, RN Department of Pulmonary 5C, [facility] / Pager: [phone] documented in this encounter Plan of Treatment Not on file documented as of this encounter Visit Diagnoses Not on filedocumented in this encounter Care Teams Discovery Manager Relationship Specialty Start Date End Date Makenzie Pete MD [address] [place] [address] PCP - General Family Medicine 08/21/21 documented as of this encounter
--- OUTSIDE RECORDS SUMMARY | 2024-10-30 12:36 | XMS_ITS | Encounter Summary ---
Author [facility] [place] [address] Care Team Providers Care Otr Owner Operator Name Role Phone Unknown Primary Care Provider Unavailabl e Encounter Details Date Type Department Care Team (Late st Contact Info) Description 08/15/2021 [place] [address] Heather Yee Social History Tobacco Use Types Packs/Day Years Used Date Smoking Tobacco: Never Assessed Sex and Gender Information Value Date Recorded Sex Assigned at Not on file Gender Identity Not on file Sexual Orientation Not on file documented as of this encounter Plan of Treatment Not on file documented as of this encounter Visit Diagnoses Not on filedocumented in this encounter Care Teams Otr Owner Operator Relationship Specialty Start Date End Date Unknown None PCP - General 08/21/11 08/20/21 documented as of this encounter
--- OUTSIDE RECORDS SUMMARY | 2024-10-30 12:36 | XMS_ITS | Encounter Summary ---
Author Organization [facility] Address [address] [place] [address] Care Team Providers Care Handtools Repairer Name Role Phone Unknown, Provider Primary Care Provider Unava ilable Encounter Details Date Type Department Care Team (Late st Contact Info) Description 03/18/2017 Results Only [facility] [phone] Makenzie Murphy MD [address] [place], [place] [id number] Social History Tobacco Use Types Packs/Day Years [...] Diagnosis Comments PAP TEST- RESULT ONLY Routine 03/18/2017 0:00 EDT documented in this encounter Results * PAP TEST- RESULT ONLY (03/18/2017 0:00 EDT) Pathology Report: CYTOPATHOLOGY REPORT Reports generated via electronic interface contain original data; however they are lacking the format of the original report. Caution should be taken when reading/interpreti ng unformatted reports. Name: ? RAHEL DELAROSA ? Accession #: ? [id number] : ? 1970 (Age: 46) ??F ?Collect Date: ? 03/18/2017 Location: ? [facility] ? Receive Date: ? 03/22/2017 Provider: ?MAKENZIE MURPHY MD Copy to: ? Specimen/Source: ?Pap Test, Cervix/Endocervix, ThinPrep Imaging System with manual evaluation Last Menstrual Period: ? Hormonal/Contracep tive Status: ? Intrauterine device: Mirena Infection History: ? Pos for HPV ? SPECIMEN ADEQUACY ? Satisfactory for Evaluation - transformation zone component present GENERAL CATEGORIZATION ? Negative for Intraepithelial Lesion or Malignancy INTERPRETATION ? Shift in vincenzo present suggestive of bacterial vaginosis. ? Document reviewed and electronically signed by: ? MELISSA Cotto(ASCP) ? Report Date: ??03/30/2017 10:31 End of Report [facility] 03/18/2017 03/22/2017 us Makenzie Murphy MD PATHOLOGY ORDERABLES Final Resu lt [facility] [address] [place] [address] documented in this encounter Visit Diagnoses Not on filedocumented in this encounter Care Teams Handtools Repairer Relationship Specialty Start Date End Date Unknown, Provider, PCP - General 06/20/09 documented as of this encounter
--- OUTSIDE RECORDS SUMMARY | 2024-10-30 12:36 | XMS_ITS | Encounter Summary ---
Author Organization [facility] Address [address] [place] [address] Care Team Providers Care Manufacturing Executive Name Role Phone Unavailable Primary Care Provider Unavailabl e Encounter Details Date Type Department Care Team (Late st Contact Info) Description 08/16/2008 Before PRISM Converted Visit ([facility]) [facility] [address] [place] [address] Mely Rothman PA Social History Tobacco Use [...] Priority Date/Time Associated Diagnosis Comments CYTOPATHOLOGY Routine 08/16/2008 0:00 EST documented in this encounter Results * CYTOPATHOLOGY (08/16/2008 0:00 EST) Pathology Report: CYTOPATHOLOGY REPORT ? Reports generated via electronic interface contain original data; ? however they are lacking the format of the original report. ? Caution should be taken when reading/interpreti ng unformatted reports. ? Name: ? RAHEL OROURKE ? Accession #: ? [id number] ? : ? 1970 (Age: 37) ??F ?Collect Date: ? 08/16/2008 ? Location: ? [facility] ? Receive Date: ? 08/20/2008 ? Provider: ?MELY MARIA DE JESUS PA ? Copy to: ? Specimen/Source: ?Pap Test, Endocervix, ThinPrep Imaging System with ? manual evaluation ? Last Menstrual Period: ? Previous Gynecologic Pathology: ? Yes: H/O abn paps in her 20's ? SPECIMEN ADEQUACY ? Satisfactory for Evaluation ? - transformation zone component present ? GENERAL CATEGORIZATION ? Negative for Intraepithelial Lesion or Malignancy ? INTERPRETATION ? Shift in vincenzo present suggestive of bacterial vaginosis. ? Document reviewed and electronically signed by: ? Lynan Davin, CT(ASCP) ? Report Date: ??08/23/2008 11:32 ? End of Report ? [facility] 08/16/2008 08/20/2008 us Mely CHAVEZ PATHOLOGY ORDERABLES Final Resul t [facility] [address] [place] [address] documented in this encounter Visit Diagnoses Not on filedocumented in this encounter
--- OUTSIDE RECORDS SUMMARY | 2024-10-30 12:36 | XMS_ITS | Encounter Summary ---
Author Organization [facility] Address [facility] [place] [address] Care Team Providers Care Loading Machine Operator Helper Name Role Phone Makenzie Pete MD Primary Care Provider Reason for Visit * Auth/Cert Specialty Diagnoses / Procedures Referred By Contmanfred t Referred To Contact Diagnoses Mediastinal adenopathy Mediastinal adenopathy/ Bronchoscopy with EBUS/ GA/ Mitchell Procedures [facility] EBUS GUIDED SAMPL 1/2 NODE STATION/STRUX BRONCH, W ENDOBRONCHIAL ULTRASOUND (EBUS) GUIDED SAMPLING, 1/2 NODES (WRVU 4.71) Referral ID Status Reason Start Date Expiration Date Visits Re quested Visits Authorized [id number] 1 1 Encounter Details Date Type Department Care Team (Latest Contact Info) Description 08/28/2021 6:43 AM EST - 08/28/2021 10:30 AM EST Hospital Encounter [place] [address] Sohail Medrano MD [facility] [place] [address] Discharge Disposition: Home Social History Tobacco Use Types Packs/Day Years [...] encounter Discharge Instructions * Discharge Instructions* Moira Lucio RN - 08/28/2021 10:11 AM EST Bronchoscopy: [...] your doctor if you can take an odei-zqy-qwohkic medicine. ?? If you think your pain [...] more? Visit our health information library at [email or web address] - [facility] Healthcare Networkinfo. You can also view health information on [employer], your personal patient account. Log in or sign uptoday. Enter S288 in the search box to learn more about Bronchoscopy: What to Expect at Home. Current as of: March 19, 2019 Content Version: 12.2 ?? [id number] [employer]. Care instructions adapted under license by [facility]. If you have questions about a medical condition or this instruction, always ask your healthcare professional. [employer] disclaims any warranty or liability for your [...] Section of Pulmonary & Critical Care Pager: [phone] documented in this encounter Miscellaneous Notes * [...] Section of Pulmonary and Critical Care Medicine [address] Room [address] [place] [address] Phone Pul Generic: [phone] [email or web address] Pager #[phone] documented in this encounter Plan of Treatment Not on file documented as of this encounter Procedures Procedure Name Priority Date/Time Associated Diagnosis Comments NON-PAINTER SET FINAL REPORT Routine 08/28/2021 9:04 AM EST NON-PAINTER SET FINAL REPORT Routine 08/28/2021 9:04 AM EST NON-PAINTER SET FINAL REPORT Routine 08/28/2021 9:04 AM EST NON-PAINTER SET FINAL REPORT Routine 08/28/2021 9:04 AM EST [...] CYTOMETRY (BLOOD) Routine 08/28/2021 8:50 AM EST NON-PAINTER SET FINAL REPORT Routine 08/28/2021 8:50 AM EST FLOW CYTOMETRY REPORT Routine 08/28/2021 8:50 AM EST HC AFB SMEAR Routine 08/28/2021 8:50 AM EST HC GRAM STAIN FOR BACTERIA Routine 08/28/2021 8:50 AM EST HC FUNGUS CULTURE, MISC SOURCE Routine 08/28/2021 8:50 AM EST IMMUNOPHENOTYPING FLOW CYTOMETRY (BLOOD) Routine 08/28/2021 8:45 AM EST FLOW CYTOMETRY REPORT Routine 08/28/2021 8:45 AM EST Bronchoscopy, Biopsy ([id number]) 08/28/2021 8:00 AM EST Mediastinal adenopathy [facility] Ebus Dx/Tx Intervention Perph Les ([id number]) 08/28/2021 8:00 AM EST Mediastinal adenopathy [facility] Ebus Guided Sampl 3/> Node Station/Strux ([id number]) 08/28/2021 8:00 AM EST Mediastinal adenopathy Bronchoscopy, Diagnostic W Lavage ([id number]) 08/28/2021 8:00 AM EST Mediastinal adenopathy documented in this encounter Results * Non-Change Management Coordinator Final Report (08/28/2021 9:04 AM EST) Diagnosis Discussion [id number] ? Location: 4T; EA12; A The signing pathologist has (i) examined the relevant preparation(s) for the specimen(s) and (ii) rendered or confirmed the diagnosis(es). . ? Non-Change Management Coordinator Final DIAGNOSIS See Discussion Electronically signed by: ?Gokul Mondragon MD Verified: ??09/02/2021 11:10 ??Pathologist Performed at: [place] [place], [facility], [place], [place] DISCUSSION Lymph node, station 4L (EBUS-guided [...] Cell Block 1. 09/02/2021 11:10 AM EST [facility] LYMPH NODE SPECIMEN / Unknown 08/28/2021 9:04 AM EST 08/28/2021 9:04 AM EST Sohail Medrano MD PATHOLOGY/CYTOL OGY ORDERABLES [facility] [place] [address] * Non-Change Management Coordinator Final Report (08/28/2021 9:04 AM EST) Diagnosis Discussion [id number] ? Location: 4T; EA12; A The signing pathologist has (i) examined the relevant preparation(s) for the specimen(s) and (ii) rendered or confirmed the diagnosis(es). . ? Non-Change Management Coordinator Final DIAGNOSIS See Discussion Electronically signed by: ?Gokul Mondragon MD Verified: ??09/02/2021 11:06 ??Pathologist Performed at: ??-[facility] [place], [place], [place] DISCUSSION Lymph node, station 11R (EBUS-guided [...] Cell Block 1. 09/02/2021 11:06 AM EST [facility] LYMPH NODE SPECIMEN / Unknown 08/28/2021 9:04 AM EST 08/28/2021 9:04 AM EST Sohail Medrano MD PATHOLOGY/CYTOL OGY ORDERABLES [facility] [place] [address] * Non-Change Management Coordinator Final Report (08/28/2021 9:04 AM EST) Diagnosis Discussion [id number] ? Location: 4T; EA12; A The signing pathologist has (i) examined the relevant preparation(s) for the specimen(s) and (ii) rendered or confirmed the diagnosis(es). . ? Non-Change Management Coordinator Final DIAGNOSIS See Discussion Electronically signed by: ?Gokul Mondragon MD Verified: ??09/02/2021 11:03 ??Pathologist Performed at: ??-[facility] [place], [place], [place] DISCUSSION Lymph node, station 7 (EBUS-guided [...] Cell Block 1. 09/02/2021 11:03 AM EST [facility] LYMPH NODE SPECIMEN / Unknown 08/28/2021 9:04 AM EST 08/28/2021 9:04 AM EST Sohail Medrano MD PATHOLOGY/CYTOL OGY ORDERABLES [facility] [place] [address] * Non-Change Management Coordinator Final Report (08/28/2021 9:04 AM EST) Diagnosis Discussion [id number] ? Location: 4T; EA12; A The signing pathologist has (i) examined the relevant preparation(s) for the specimen(s) and (ii) rendered or confirmed the diagnosis(es). . ? Non-Change Management Coordinator Final DIAGNOSIS See Discussion Electronically signed by: ?Gokul Mondragon MD Verified: ??09/02/2021 10:59 ??Pathologist Performed at: ??-[facility] [place], [place], [place] DISCUSSION Lymph node, station 4R (EBUS-guided [...] Cell Block 1. 09/02/2021 10:59 AM EST [facility] LYMPH NODE SPECIMEN / Unknown 08/28/2021 9:04 AM EST 08/28/2021 9:04 AM EST Sohail Medrano MD PATHOLOGY/CYTOL OGY ORDERABLES [facility] [place] [address] * Surgical Pathology Report (08/28/2021 9:04 AM EST) Final Diagnosis [id number] ? Location: 4T; EA12; A The signing pathologist has (i) examined the relevant preparation(s) for the specimen(s) and (ii) rendered or confirmed the diagnosis(es). . ?Surgical Pathology DIAGNOSIS Endobronchial biopsy: - Bronchial tissue with nonspecific ?? chronic inflammation. Electronically signed by: ?MD Una, Dyllan Moralez Verified: ??08/29/2021 16:28 ??Pathologist Performed at: ??-[facility] [place], [place], [place] SPECIMEN(S) SUBMITTED A - endobronchial biopsy, biopsy (1) CLINICAL INFORMATION ? Sarcoid SPECIMEN PROCESSING A - Labeled/Fixative: Endobronchial biopsies, formalin. Quantity/Size: Fragments, 0.1-0.2 cm. Tissue Description: Soft, focally hemorrhagic pink-white tissues. Sections/Processi ng: Submitted en toto ??in 1 cassette labeled A1. ??pps 08/29/2021 4:28 PM EST [facility] LUNG STRUCTURE / Unknown 08/28/2021 9:04 AM EST 08/28/2021 9:04 AM EST Sohail Medrano MD PATHOLOGY/CYTOL OGY ORDERABLES Performing Organization Address [facility]/ZIP Co de Phone Number [facility] [place] [address] * Specimen to Pathology (08/28/2021 9:04 AM EST) AP Specimen 08/28/2021 9:04 AM EST 08/28/2021 9:04 AM EST Narrative [facility] - 08/28/2021 9:04 AM EST Specimen requisition ordered. ??Separate Pathology report to follow Sohail Medrano MD PATHOLOGY/CYTOL OGY ORDERABLES Performing Organization Address City/[facility]/ZIP Co de Phone Number [facility] [place] [address] * Cytopathology Non-Gynecological (08/28/2021 9:04 AM EST) AP Specimen 08/28/2021 9:04 AM EST 08/28/2021 9:04 AM EST Narrative [facility] - 08/28/2021 9:04 AM EST Specimen requisition ordered. ??Separate Pathology report to follow Sohail Medrano MD PATHOLOGY/[place] [address] * Cytopathology Non-Gynecological (08/28/2021 9:04 AM EST) AP Specimen 08/28/2021 9:04 AM EST 08/28/2021 9:04 AM EST Narrative [facility] - 08/28/2021 9:04 AM EST Specimen requisition ordered. ??Separate Pathology report to follow Sohail Medrano MD PATHOLOGY/[place] [address] * Cytopathology Non-Gynecological (08/28/2021 9:04 AM EST) AP Specimen 08/28/2021 9:04 AM EST 08/28/2021 9:04 AM EST Narrative [facility] - 08/28/2021 9:04 AM EST Specimen requisition ordered. ??Separate Pathology report to follow Sohail Medrano MD PATHOLOGY/[place] [address] * Cytopathology Non-Gynecological (08/28/2021 9:04 AM EST) AP Specimen 08/28/2021 9:04 AM EST 08/28/2021 9:04 AM EST Narrative [facility] - 08/28/2021 9:04 AM EST Specimen requisition ordered. ??Separate Pathology report to follow Sohail Medrano MD PATHOLOGY/[place] [address] * Cytopathology Non-Gynecological (08/28/2021 9:04 AM EST) AP Specimen 08/28/2021 9:04 AM EST 08/28/2021 9:04 AM EST Narrative [facility] - 08/28/2021 9:04 AM EST Specimen requisition ordered. ??Separate Pathology report to follow Sohail Medrano MD PATHOLOGY/CYTOL OGY ORDERABLES [facility] [place] [address] * Non-Change Management Coordinator Final Report (08/28/2021 8:50 AM EST) Diagnosis Discussion [id number] ? Location: 4T; EA12; A The signing pathologist has (i) examined the relevant preparation(s) for the specimen(s) and (ii) rendered or confirmed the diagnosis(es). . ? Non-Change Management Coordinator Final DIAGNOSIS See Discussion Electronically signed by: ?Giancarlo JJ, Gokul Verified: ??08/30/2021 11:15 ??Pathologist Performed at: ??-[facility] [place], [place], [place] DISCUSSION Bronchial alveolar lavage: Respiratory epithelia cells, abundant alveolar macrophages, a few neutrophils and mucus. No overtly cytologically malignant cells seen. Clinical and radiologic correlation is required to determine whether this sample is fully marketing representative of a clinically suspected lesion. (Cell [...] Cell Block 1. 08/30/2021 11:15 AM EST [facility] BRONCHIAL STRUCTURE / Unknown 08/28/2021 8:50 AM EST 08/28/2021 8:50 AM EST Sohail Medrano MD PATHOLOGY/CYTOL OGY ORDERABLES [facility] [address] * Flow Cytometry Report (08/28/2021 8:50 AM EST) Flow Cytometry Report [id number] ? Location: 4T; EA12; A The signing pathologist has (i) examined the relevant preparation(s) for the specimen(s) and (ii) rendered or confirmed the diagnosis(es). . ?Flow Cytometry DIAGNOSIS Flow cytometric diagnosis: ?? The CD4:CD8 ratio is 1.36 Electronically signed by: ?Marysol JJ, Flynn Verified: ??08/29/2021 17:11 ??Hematopathologist Performed at: ??-[facility] [place] [place], [place], [place] DISCUSSION Cell viability in the JI42-jccfqo low-SSC histogram region was 76% as assessed by 7- AAD exclusion. Lymphocytes enriched gate approximately 2% of total events, consisting of T-cells (78%), B-cells (4%), and NK-cells (2%). The CD4:CD8 ratio is 1.36 (normal 0.9-2.5 for adults). No evidence of abnormal CD4:CD8 in limited lymphocyte population. Reference: Charli et al. [place] ?? Journal of ??Respiratory and Critical ??Care Medicine. An ??Official [place] Thor[employer] Society Clinical Practice Guideline: The Clinical [...] by the Clinical Flow Cytometry Laboratory at [facility]. It has not been cleared or approved [...] high complexity clinical laboratory testing. SPECIMEN PROCESSING [id number] Cells for immunophenotypic analysis were derived from BAL. CD45 vs side scatter gating was utilized to identify a lymphoid analysis region that comprises approximately 1% of all cells. The following markers were assessed: CD3, CD4, CD8, CD19, CD45, and CD56. CLINICAL INFORMATION CD4: Cd8 ratio [facility] 08/28/2021 8:50 AM EST Sohail Medrano MD PATHOLOGY/CYTOL OGY ORDERABLES Performing Organization Address [facility] [place] [address] * Immunophenotyping Flow Cytometry (08/28/2021 8:50 AM EST) Immunophenotyping Flow See Comment [facility] Comment: When completed by the Pathologist, the Flow Cytometry Report ([id number]) will display under the Pathology Results section within [facility]. Other 08/28/2021 8:50 AM EST 08/28/2021 9:56 AM EST Narrative Resulting Agency Comment Spec In Lab Sohail Medrano MD HEMATOLOGY ORDE RABLES Performing Organization Address [facility]/ZIP Co de Phone Number [facility] [place] [address] * AFB culture Bronchial Alveolar Lavage (08/28/2021 8:50 AM EST) Acid Fast Bacilli Culture No Acid Fast Bacilli isolated If active tuberculosis is suspected, the patient should be on [employer]. Call Infection Prevention for assistance if needed. [facility] Acid Fast Stain No Acid Fast Bacilli seen [facility] Bronchial Alveolar Lavage 08/28/2021 8:50 AM EST 08/28/2021 10:02 AM EST Comment:RML Narrative Resulting Agency Comment Spec In Lab Sohail Medrano MD MICROBIOLOGY - GENERAL ORDERABLES Performing Organization Address [facility] de Phone Number [facility] [place] [address] * Fungus culture Bronchial Alveolar Lavage (08/28/2021 8:50 AM EST) Fungus Culture No Fungus isolated [facility] Bronchial Alveolar Lavage 08/28/2021 8:50 AM EST 08/28/2021 10:02 AM EST Comment:RML Narrative Resulting Agency Comment Spec In Lab Sohail Medrano MD MICROBIOLOGY - GENERAL ORDERABLES Performing Organization Address [facility] de Phone Number [facility] [place] [address] * Lower Respiratory Culture Bronchial Alveolar Lavage (08/28/2021 8:50 AM EST) Lower Respiratory Culture No growth [facility] Gram Stain Few Neutrophils seen No squamous epithelial cells No microorganisms seen. [facility] Bronchial Alveolar Lavage 08/28/2021 8:50 AM EST 08/28/2021 10:02 AM EST Comment:RML Narrative Resulting Agency Comment Spec In Lab Sohail Medrano MD MICROBIOLOGY - GENERAL ORDERABLES Performing Organization Address [facility] de Phone Number [facility] [place] [address] * Flow Cytometry Report (08/28/2021 8:45 AM EST) Flow Cytometry Report [id number] ? Location: 4T; EA12; A The signing [...] MD Verified: ??08/29/2021 17:08 ??Hematopathologist Performed at: ??-[facility] [place] [place], [place], [place] DISCUSSION Blasts based on CD45 expression and orthogonal light scatter, are not increased. The T-lymphocytes, CD56+ NK cells and B- lymphocytes comprise approx 56%, 2%, 42% of the gated population, respectively. The CD19 positive B-cells have a polytypic expression of surface immunoglobulin light chain ([place]:Lambda ratio at 1.4). The T-cells are an admixture of CD4+ and CD8+ T lymphocytes (ratio of 3). No loss or atypical intensity distributions are seen for any lee T antigen (CD2, 3, 4+8, 5, 7). There is no increase in QG48-fvmtdjsl/CD3-ne g NK cells. Flow analysis is an ancillary study. A definite diagnosis requires correlation with the morphologic features of this process and if necessary, correlation with other ancillary studies like immunohistochemistry , enzyme cytochemistry and/or cyto/ molecular genetics. This test was developed and its performance characteristics determined by the Clinical Flow Cytometry Laboratory at [facility]. It has not been cleared or approved [...] high complexity clinical laboratory testing. SPECIMEN PROCESSING [id number] Cells for immunophenotypic analysis were derived from station 7 lymph node. CD45 vs side scatter gating was utilized to identify a lymphoid analysis region that comprises approximately 89-90% of all cells. The following markers were assessed: CD2, CD3, CD4, CD5, CD7, CD8, CD10, CD19, CD45, CD56, kappa light chain, and lambda light chain. CLINICAL INFORMATION adenopathy [facility] 08/28/2021 8:45 AM EST Sohail Medrano MD PATHOLOGY/CYTOL OGY ORDERABLES Performing Organization Address [facility]/ZIP Co de Phone Number [facility] [place] [address] * Immunophenotyping Flow Cytometry (08/28/2021 8:45 AM EST) Immunophenotyping Flow See Comment [facility] Comment: When completed by the Pathologist, the Flow Cytometry Report ([id number]) will display under the Pathology Results section within [facility]. Other 08/28/2021 8:45 AM EST 08/28/2021 9:39 AM EST Narrative Resulting Agency Comment Spec In Lab Sohail Medrano MD HEMATOLOGY ORDE RABLES Performing Organization Address [facility] Co de Phone Number [facility] [place] [address] documented in this encounter Visit Diagnoses Not on filedocumented in this encounter Active and Recently Administered [...] CRNA) documented in this encounter Care Teams Loading Machine Operator Helper Relationship Specialty Start Date End Date Makenzie Pete MD [address] [place] [address] PCP - General Family Medicine 08/21/21 documented as of this encounter
--- OUTSIDE RECORDS SUMMARY | 2024-10-30 12:36 | XMS_ITS | Encounter Summary ---
Author Organization [facility] Address [facility] [place] [address] Care Team Providers Care Shank Threader Name Role Phone Makenzie Pete MD Primary Care Provider [phone] Encounter Details Date Type Department Care Team (Late st Contact Info) Description 09/10/2005 Orders Only Urology at [facility] [place] [address] Chelsea Corona MD [facility] [place] [address] Social History Tobacco Use Types Packs/Day Years Used Date Smoking Tobacco: Never Assessed Sex and Gender Information Value Date Recorded Sex Assigned at Not on file Gender Identity Not on file Sexual Orientation Not on file documented as of this encounter Plan of Treatment Not on file documented as of this encounter Procedures Procedure Name Priority Date/Time Associated Diagnosis Comments NON-FARMWORKER DAIRY FINAL REPORT Routine 09/10/2005 2:42 PM EST documented in this encounter Results * Non-Assistant Site Manager Final Report (09/10/2005 2:42 PM EST) Non-Assistant Site Manager Final Report [id number] ? Location: The signing pathologist has (i) examined the relevant preparation(s) for the specimen(s) and (ii) rendered or confirmed the diagnosis(es). . ? Pathology Non-Assistant Site Manager Cytology Final Report Clinical Information Specimen Source: ?Urine, Voided Clinical History/Impress ion: ?? Hematuria. Gross Description: ?Rec'd in Cytorich blue, approx. 40 ml. total volume of clear, yellow fluid. ?Total Prep - LBP 1. Interpretation Specimen submitted is satisfactory. Diagnosis Negative for Malignancy 09/15/05 ?Screened by: ? SLA ?Rescreened by: ?? EJG 09/15/05 ?Verified by: ? Yon Chen MD ? Pathologist ? (Electronic Signature) Comment Predominantly squamous cells. Red blood cells present. LAUREN ALVAREZ 09/10/2005 2:42 PM EST Chelsea Corona MD PATHOLOGY/CYTOL OGY ORDERABLES LAUREN ALVAREZ documented in this encounter Visit Diagnoses Not on filedocumented in this encounter Care Teams Shank Threader Relationship Specialty Start Date End Date Makenzie Pete MD [address] [place] [address] PCP - General Family Medicine 08/21/21 documented as of this encounter
--- OUTSIDE RECORDS SUMMARY | 2024-10-30 12:36 | XMS_ITS | Encounter Summary ---
Author Organization [facility] Address [address] [place] [address] Care Team Providers Care Acquisition Analyst Name Role Phone Unknown, Provider Primary Care Provider Unava ilable Encounter Details Date Type Department Care Team (Late st Contact Info) Description 11/04/2023 Lab Requisition [facility] Pathology & Laboratory Medicine - [address] [address] Ericka Burgos MD [address] [place] [phone] Encounter for other general examination Social History Tobacco Use Types Packs/Day Years [...] Date/Time Associated Diagnosis Comments PAP TEST Today 11/03/2023 14:30 EST Encounter for other general examination HPV DNA DETECTION WITH GENOTYPING, PCR Today 11/03/2023 14:30 EST Encounter for other general examination documented in this encounter Results * HUMAN PAPILLOMAVIRUS (HPV) DETECTION-HIGH RISK TYPES (11/03/2023 14:30 EST) HPV other High Risk types, PCR Negative Negative 11/17/2023 16:40 EST [facility] Comment:No E6 or E7 mRNA is detected from HPV types 16,18,31,33,35,39,45,51,52,56,58,59,66, and 68 by team otr truck driver mediated amplification. Pap Test CERVIX UTERI STRUCTURE / Unknown 11/03/2023 14:30 EST 11/16/2023 13:36 EST Ericka Burgos MD MICROBIOLOGY - GENERAL ORDER MARSHAL Final Result [facility] [address] [place] [address] * PAP TEST (11/03/2023 14:30 EST) Specimens A. Cervix and/or Endocervix , ThinPrep Imaging System with Manual Evaluation 11/17/2023 16:40 [facility] Specimen Adequacy Satisfactory for Evaluation - transformation zone component present 11/17/2023 16:40 [facility] General Categorization Negative for intraepithelial lesion or malignancy 11/17/2023 16:40 [facility] Descriptive Diagnosis Shift in vincenzo present suggestive of bacterial vaginosis. 11/17/2023 16:40 [facility] Attestation . 11/17/2023 16:40 [facility] at 1640 Clinical History See below 11/17/19 16:40 [facility] HPV The result for the Human Papillomavirus (HPV) Detection-High Risk Types is Negative. No E6 or E7 mRNA is detected from HPV types 16,18,31,33,35,39 ,45,51,52,56,58,5 9,66, and 68 by team otr truck driver mediated amplification.Devi ting was performed on specimen [id number] and was resulted on 11/17/2023 1640 EST by KIARA, LAB INSTRUMENT RESULTS IN 11/17/2023 16:40 [facility] Performing Lab [facility] 11/17/2023 16:40 [facility] Scanned Images 11/17/2023 16:40 [facility] Pap Test CERVIX UTERI STRUCTURE / Unknown 11/03/2023 14:30 EST 11/04/2023 10:08 EST Ericka Burgos MD PATHOLOGY ORDERABLES Final R esult [facility] [address] [place] [address] documented in this encounter Visit Diagnoses Diagnosis Encounter for other general examination documented in this encounter Care Teams Acquisition Analyst Relationship Specialty Start Date End Date Unknown, Provider, PCP - General 06/20/09 documented as of this encounter
== END 2024-10-30 12:34 | disposition home or self-care (01) ==
LOC: LBN 12:33
PROVIDERS: PCP Family Medicine; Visit Provider Physician Assistant Surgical
DX: D86.9 Sarcoidosis, unspecified (principal)
CPT/HCPCS: 80053; 85025

== ENCOUNTER 2024-12-07 08:44 | Outpatient (CLI) | payer OTHER, SELFPAY ==
--- NOTE | 2024-12-07 08:45 | RT.EKG_ITS ---
APPROVED REPORT Exam: Resting ECG Reason for Exam: annual Patient Location: O HR:77 bpm ECG Measurements Heart Rate 77 AXIS TX 133 P 69 QRSd 105 QRS 45 QT 374 T 8 QTc 424 Conclusion Sinus rhythm...normal P axis, V-rate 50- 99 Normal Electrocardiogram
== END 2024-12-07 08:45 | disposition home or self-care (01) ==
PROVIDERS: PCP Family Medicine; Visit Provider Physician Assistant Surgical
DX: D86.0 Sarcoidosis of lung (principal)
CPT/HCPCS: 93005; 93010

== ENCOUNTER 2025-02-21 02:03 | Outpatient (CLI) | payer OTHER, SELFPAY ==
--- NOTE | 2025-02-21 07:45 | DI.MAMMO_ITS ---
Exam(s) MAMMO SCREENING EXAM: MAMMO SCREENING CLINICAL HISTORY: SCREENING, Z12.31 TECHNIQUE: Bilateral full field digital CC and MLO mammographic images were obtained with 3D tomosyn thesis and utilizing computer aided detection (CAD). COMPARISON: Available for comparison. FINDINGS: Masses/Architectural Distortion: There is a new 6 mm ovoid density in the medial left breast on the c raniocaudad view. There are no areas of architectural distortion. There is a stable nodule in the r ight breast. Microcalcifications: No suspicious pleomorphic-type are seen. Skin Thickening/Nipple Retraction: None. IMPRESSION: 1. New area of nodularity in the medial left breast. 2. This area should be further evaluated with a spot compression view. Ultrasound may be indicated a t that time. BI-RADS Category 0 - Incomplete: Need additional imaging evaluation Breast Density - Category C - The breast are heterogeneously dense, which may obscure small masses. Breast density category C or D implies that the patient has dense breast tissue. Dense breast tissue is very common and is not abnormal but dense breast tissue can make it harder to find cancer on a ma mmogram. Also, dense breast tissue may increase their breast cancer risk. This information about the result of the mammogram report was provided to the patient to raise their awareness. Use this report when you speak with the patient about their risks for breast cancer, which includes their family hist ory. At that time, you may recommend for more screening tests (Ultrasound or MRI) as they might be us eful based on their risk. A negative radiographic report should not delay biopsy if a dominant or clinically suspicious mass is present. Up to ten percent of cancers are not identified on mammography. A negative report may reinforce clinical impression. Adenosis and dense breasts may obscure an underlying neoplasm. False positive reports average 6 to 10%. Patient will receive a letter notifying them of these results.
== END 2025-02-21 02:23 ==
LOC: DI 02:03
PROVIDERS: PCP Family Medicine; Visit Provider Family Medicine
DX: Z12.31 Encounter for screening mammogram for malignant neoplasm of breast (principal); R92.333 Mammographic heterogeneous density, bilateral breasts
CPT/HCPCS: 77063; 77067

== ENCOUNTER 2025-03-01 02:30 | Outpatient (CLI) | payer OTHER, SELFPAY ==
--- NOTE | 2025-03-01 | DI.US_ITS ---
Exam(s) MG MAMMO SCREEN CALL BACK UNI US BREAST LT LIMITED EXAM: MG MAMMO SCREEN CALL BACK UNI CLINICAL HISTORY: 6 mm ovoid density in medial lt breast on CC view. TECHNIQUE: Craniocaudal spot compression digital Mammography views of the breast with Tomosynthesis and breast ultrasound. COMPARISON: MG MG MAMMO SCREENING from 08/16/2019 MG MG MAMMO SCREENING from 07/23/2021 MG MG MAMMO SCREENING from 12/30/2022 MG MG MAMMO SCREEN CALL BACK BI from 02/15/2024 MG MG MAMMO SCREENING from 02/21/2025 US US BREAST LT LIMITED from 03/01/2025 FINDINGS: Mammography/Tomosynthesis: Masses: None seen. Architectural Distortion: None seen. Microcalcifictions: No suspicious pleomorphic-type are seen. Skin Thickening/Nipple Retraction: None. Left breast US: Echotexture: Normal appearance of the glandular tissue. Shadowing: No suspicious foci. Cyst: 7 x 3 x 5 millimeters cyst 9 o'clock position 4 cm from the nipple appears to account for the m ammographic nodule. Other small cysts were seen in the 6-8 o'clock positions Solid lesions: None seen. Ductal dilation: None. IMPRESSION: 1. No evidence of malignancy is noted. 2. Unless there is more urgent need, follow-up screening mammography is recommended, as per [place] [employer] guidelines. 3. The findings were discussed with the patient on the date of the examination. BI-RADS Category 2 - Benign Findings Breast Density - Category C - The breast are heterogeneously dense, which may obscure small masses. Breast density Category C or D implies that the patient has dense breast tissue. Dense breast tissue can make it harder to find cancer on a mammogram. Dense breast tissue is also associated with an incr eased risk of breast cancer. This information about the result of the mammogram report was provided to the patient to raise their awareness. Use this report when you speak with the patient about their risks for breast cancer, which includes their family history. At that time, you may recommend additional screening tests (Ultrasoun d or MRI) as these tests may add significant information. A negative radiographic report should not delay biopsy if a dominant or clinically suspicious mass is present. Up to ten percent of cancers are not identified on mammography. A negative report may reinforce clinical impression. Adenosis and dense breasts may obscure an underlying neoplasm. False positive reports average 6 to 10%. Patient will receive a letter notifying them of these results.
== END 2025-03-01 02:50 ==
LOC: DI 02:30
PROVIDERS: PCP Family Medicine; Visit Provider Family Medicine
DX: Z12.31 Encounter for screening mammogram for malignant neoplasm of breast (principal); R92.8 Other abnormal and inconclusive findings on diagnostic imaging of breast
CPT/HCPCS: 76642; 77063; 77067